=== PATIENT | male | born 1950 | race African-American/Black ===

== ENCOUNTER 2022-06-11 12:09 | Emergency (ER) | payer OTHER ==
[2022-06-11 15:04] LABS: Absolute Lymphocytes (CBC) 0.9 K/uL (0.7-4.9); Hematocrit 43.9 % (39.6-49.0); Lymphocytes % 31.6 % (15.3-44.8); MCV 92.7 fL (80-100); MPV 9.5 fL (7.6-11.3); RBC Red Blood Cell Count 4.74 M/uL (4.33-5.43)
[2022-06-11 15:13] LABS: Potassium 4.8 mmol/L (3.5-5.1)
--- NOTE | 2022-06-11 16:12 | RAD REPORT ---
EXAM DESCRIPTION: CT - Soft Tissue Neck W/Contr CLINICAL HISTORY: right sided neck swelling COMPARISON: No comparisons TECHNIQUE All CT scans are performed using dose optimization technique as appropriate and may includ e automated exposure control or mA/KV adjustment according to patient size. FINDINGS: There is a large mass appearing to emanate from the right lobe of the thyroid measuring 5. 7 x 4.9 cm. There is internal necrosis 10 dystrophic calcifications. The mass results in right to lef t midline shift of the trachea. Left lobe of the thyroid is normal. A few mildly prominent lymph nodes are seen along both jugular ch ains. Moderate midcervical degenerative spondylosis. 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 Moderate right to left midline shift of the trachea.
--- NOTE | 2022-06-11 17:02 | ER ---
Nurse's Notes [facility] Name: Chu Soria Jr Age: 71 yrs Sex: Male : 1950 Arrival Date: 06/11/2022 Time: 12:12 Bed DIS1 Private MD: Diagnosis: Thyroid Mass Presentation: 06/11 12:48 Chief complaint: Patient states: knot right front neck x1 week; denies pain, swallow 5 okay, "I dont think it's getting any bigger but im not sure". Coronavirus screen: Vaccine status: Patient reports receiving the 2nd dose of the covid vaccine. Client denies travel out of the [place] in the last 14 days. Ebola Screen: Patient negative for fever greater than or equal to 101.5 degrees Fahrenheit, and additional compatible Ebola Virus Disease symptoms Patient denies exposure to infectious person. Patient denies travel to an Ebola-affected area in the 21 days before illness onset. Initial Sepsis Screen: Does the patient meet any 2 criteria? No. Patient's initial sepsis screen is negative. Does the patient have a suspected source of infection? No. Patient's initial sepsis screen is negative. Risk Assessment: Do you want to hurt yourself or someone else? Patient reports no desire to harm self or others. 12:48 Method Of Arrival: Ambulatory [facility] 12:48 Acuity: [place] 3 5 Triage Assessment: 12:52 General: Appears comfortable, slender, well groomed, well developed, well nourished, [facility] Behavior is calm, cooperative, appropriate for age. Pain: Denies pain. Historical: - Allergies: 12:52 No Known Allergies; 5 - PMHx: 12:52 None; [facility] - Immunization history:: Adult Immunizations up to date. - Social history:: Smoking status: Patient denies any tobacco usage or history of. Vital Signs: 12:48 BP 156 / 93; Pulse 71; Resp 16; Temp 98.8; Pulse Ox 97% ; Weight 77.56 kg; Height 5 ft. jh5 7 in. (170.18 cm); Pain 0/10; 12:48 Body Mass Index 26.78 (77.56 kg, 170.18 cm) [facility] ED Course: 12:12 Patient arrived in ED. 4 12:52 Triage completed. jh5 12:52 Arm band placed on right wrist. [facility] 13:06 Familia Sen PA is PHCP. [facility] 13:06 Ulisses Donnelly MD is Attending Physician. [facility] 14:23 Mary Miles, RN is Primary Nurse. iw 14:46 Inserted saline lock: 22 gauge in left antecubital area, using aseptic technique. Blood iw collected. 16:00 Soft Tissue Neck W/Contr In Process Unspecified. EDMS 17:01 Nicolasa Love MD is Referral Physician. [facility] Administered Medications: No medications were administered Outcome: 17:01 Discharge ordered by . [facility] 17:12 Patient left the ED. iw Signatures: Dispatcher [employer] EDPA Familia Sen PA PA Mary Dumont, RN RN Libby Corona rg4 Wanda Aleln RN RN 5
--- NOTE | 2022-06-11 17:02 | EDPHYS ---
Physician Documentation [facility] Name: Chu Soria Jr Age: 71 yrs Sex: Male : 1950 Arrival Date: 06/11/2022 Time: 12:12 Bed DIS1 Private MD: ED Physician Ulisses Donnelly HPI: 06/11 16:43 This 71 yrs old Black Male presents to ER via Ambulatory with complaints of Neck Pain, jmm <24hrs Old. 16:43 The patient or guardian complains of pain. Onset: The symptoms/episode began/occurred jmm gradually, 1 week(s) ago. This is a 71 year old male with complaints neck swelling beginning approx a week ago. Denies sob, difficulty swallowing. [facility] Denies fever. Historical: - Allergies: 12:52 No Known Allergies; jh5 - PMHx: 12:52 None; [facility] - Immunization history:: Adult Immunizations up to date. - Social history:: Smoking status: Patient denies any tobacco usage or history of. ROS: 16:43 Constitutional: Negative for fever, chills, and weight loss, Cardiovascular: Negative jmm for chest pain, palpitations, and edema, Respiratory: Negative for shortness of breath, cough, wheezing, and pleuritic chest pain. 16:43 Abdomen/GI: Negative for abdominal pain, nausea, vomiting, diarrhea, and constipation, Back: Negative for injury and pain, MS/Extremity: Negative for injury and deformity, Skin: Negative for injury, rash, and discoloration, Neuro: Negative for headache, weakness, numbness, tingling, and seizure, Psych: Negative for depression, anxiety, suicide ideation, homicidal ideation, and hallucinations. 16:43 ENT: Positive for neck swelling. 16:43 All other systems are negative. Exam: 16:43 Constitutional: This is a well developed, well nourished patient who is awake, alert, jmm and in no acute distress. Head/Face: atraumatic. Eyes: EOMI, no conjunctival erythema appreciated ENT: Moist Mucus Membranes 16:43 Chest/axilla: Normal chest wall appearance and motion. Cardiovascular: Regular rate and rhythm. No edema appreciated Respiratory: Normal respirations, no respiratory distress appreciated Abdomen/GI: Non distended Back: Normal ROM Skin: General appearance color normal 16:43 Neck: right sided anterior neck swelling appreciated, non tender to palpation. 16:43 Musculoskeletal/extremity: ROM: intact in all extremities. 16:43 Skin: Appearance: Color: normal in color. 16:43 Neuro: Motor: is normal. 16:43 Psych: Behavior/mood is pleasant, cooperative. Vital Signs: 12:48 BP 156 / 93; Pulse 71; Resp 16; Temp 98.8; Pulse Ox 97% ; Weight 77.56 kg; Height 5 ft. jh5 7 in. (170.18 cm); Pain 0/10; 12:48 Body Mass Index 26.78 (77.56 kg, 170.18 cm) jh5 MDM: 13:[address] [facility] 16:36 ED course: call subhash. [facility] 16:59 Data reviewed: vital signs, nurses notes. Counseling: I had a detailed discussion with mehnaz the patient and/or guardian regarding: the historical points, exam findings, and any diagnostic results supporting the discharge/admit diagnosis, the need for outpatient follow up, to return to the emergency department if symptoms worsen or persist or if there are any questions or concerns that arise at home. ED course: I discussed the patient with Dr. Love whom will follow up with the patient. patient is otherwise given strict return precautions. patient understood and agrees with plan of care. . 06/11 13:02 Order name: BMP; Complete Time: 15:16 [facility] 06/11 13:03 Order name: CBC with Diff; Complete Time: 15:21 [facility] 06/11 13:02 Order name: Soft Tissue Neck W/Contr CT [facility] 06/11 13:02 Order name: Saline Lock; Complete Time: 14:46 [facility] 06/11 13:06 Order name: Soft Tissue Neck W/Contr; Complete Time: 16:28 EDMS Administered Medications: No medications were administered Disposition: 16:44 Co-signature as Attending Physician, Ulisses Donnelly MD I agree with the assessment and rt plan of care. Disposition Summary: 06/11/22 17:01 Discharge Ordered Location: Home [facility] Condition: Stable [facility] Diagnosis - Thyroid Mass [facility] Followup: [facility] - With: Nicolasa Love MD - When: 1 - 2 days - Reason: Recheck today's complaints, Continuance of care, Re-evaluation by your physician Discharge Instructions: - Discharge Summary Sheet [facility] - Thyroid Needle Biopsy [facility] Forms: - Medication Reconciliation Form jmm - Thank You Letter jmm - Antibiotic Education jmm - Prescription Opioid Use mehnaz Signatures: Dispatcher [employer] Familia Baum PA PA jmm Rees, Jessica, RN RN jh5 Ulisses Donnelly MD MD rt
[2022-06-11 17:16] VITALS: BP 156/93; TEMP 98.8; O2SAT 97
== END 2022-06-11 17:12 | disposition home or self-care (01) ==
LOC: ER 12:09
DX: E07.9 Disorder of thyroid, unspecified (principal)
CPT/HCPCS: 85025; 80048; 36415; 70491; 99283; Q9967

== ENCOUNTER 2023-12-22 16:42 | Inpatient (IN) | payer OTHER ==
--- OUTSIDE RECORDS SUMMARY | 2023-12-22 16:46 | XMS REPORT | Clinical Summary ---
Author Name Unknown Organization [facility] Address [address] [place] [address] Care Team Providers Care Thread Reeler Name Role Phone Yasmani Martínez MD Unavailable + [phone] Ana Love DO Unavailable Rafa Britton MD Primary Care Provider [phone] Gerald Guzman MD Unavailable Delicia Almonte MD Unavailable [phone] Jana Handley MD Unavailable [phone] Shell Yuan MD Unavailable Allergies No known active allergies Medications Medication Sig Dispensed Refills Start Date End Date Status metFORMIN (GLUCOPHAGE) 850 mg tablet Take 1 tablet (850 mg) by mouth 2 (two) times a day with meals. Active spironolactone (ALDACTONE) 25 mg tablet Take 1 tablet (25 mg) by mouth daily. Active atorvastatin (LIPITOR) 80 mg tablet Take 1 tablet (80 mg) by mouth. Active sacubitriL-valsart an (ENTRESTO) 97 mg-103 mg tab per tablet Take 1 tablet by mouth twice daily. Active carvedilol (COREG) 12.5 mg tablet Take 1 tablet (12.5 mg) by mouth twice daily. Active aspirin 81 mg EC tablet Take 1 tablet (81 mg) by mouth. Active levothyroxine (Synthroid) 137 mcg tabletIndications: Postoperative hypothyroidism Take 1 tablet (137 mcg) by mouth daily. 30 tablet 11 4 Active levoFLOXacin (LEVAQUIN) 500 mg tabletIndications: Elevated prostate specific antigen (PSA) Take 1 tablet (500 mg) by mouth daily for 3 days. Start medication on 01/19/24, the day before your biopsy. 3 tablet 4 024 Active docusate sodium (COLACE) 100 mg capsuleIndications :Follicular lesion of thyroid Take 1 capsule (100 mg) by mouth 2 (two) times a day as needed for constipation. 30 capsule 3 024 Discontinued levothyroxine (SYNTHROID, LEVOTHROID) 75 mcg tabletIndications: Follicular thyroid carcinoma,Postoper ative hypothyroidism,Mak g-term drug therapy Take 1 tablet (75 mcg) by mouth daily. 30 tablet 13 3 023 Discontinued(Re order) levothyroxine (SYNTHROID, LEVOTHROID) 112 mcg tabletIndications: Follicular thyroid carcinoma,Postoper ative hypothyroidism,Mak g-term drug therapy Take 1 tablet (112 mcg) by mouth daily. 30 tablet 13 3 023 Discontinued(Re order) levothyroxine (SYNTHROID, LEVOTHROID) 112 mcg tabletIndications: Follicular thyroid carcinoma,Postoper ative hypothyroidism,Mak g-term drug therapy Take 1 tablet (112 mcg) by mouth daily. 30 tablet 13 3 024 Discontinued(Do se adjustment) multivitamin tab tablet Take by mouth. 024 Discontinued levothyroxine (SYNTHROID, LEVOTHROID) 125 mcg tabletIndications: Follicular thyroid carcinoma,Postoper ative hypothyroidism,Mak g-term drug therapy Take 1 tablet (125 mcg) by mouth daily. 90 tablet 2 4 024 Discontinued(Re order) levothyroxine (SYNTHROID, LEVOTHROID) 125 mcg tabletIndications: Follicular thyroid carcinoma,Postoper ative hypothyroidism,Mak g-term drug therapy Take 1 tablet (125 mcg) Saturday through Saturday and 1/2 tablet on Saturday (total 6-1/2 tablet/week). 90 tablet 1 4 024 Discontinued(Do se adjustment) LORazepam (Ativan) 1 mg tabletIndications: Elevated prostate specific antigen (PSA) Take 1 tablet (1 mg) by mouth once for 1 dose. Bring medication with you to your procedure appointment and do not take until instructed by staff 1 tablet 024 Active Problems Problem Noted Date Diagnosed Date Follicular thyroid carcinoma 09/25/2022 Cancer Staging:Pathologic stage from 09/03/2022:Stage II(pT3a, pNX, cM0, Age at diagnosis: >= 55 years) - Signed by Lilia Razo PA on 09/25/2022 Follicular lesion of thyroid 06/21/2022 Acute pulmonary insufficiency following thoracic surgery 10/30/2016 Dysfunction of right cardiac ventricle 7 Hyperglycemia 10/30/2016 Thrombocytopenia 10/30/2016 Coronary arteriosclerosis 10/28/2016 Encounters Date Type Department Care Team Description 12/20/2023 Orders Only [facility] [place] - [facility]rology [address] [place] [address] Manuel Hardy PA Elevated prostate specific antigen (PSA) (Primary Dx) 12/19/2023 3:00 PM CDT Telemedicine [facility] - Urology [address] [place] [phone] Shell Yuan MD Elevated prostate specific antigen (PSA) (Primary Dx) 12/17/2023 Orders Only MD [facility] [place] - Urology [address] [place] [address] Dia Holm PA Elevated prostate specific antigen (PSA) (Primary Dx) 12/05/2023 2:30 PM CDT Ancillary Procedure PET Imaging [address] [facility], 6th [place] [address] Parul Rader MD Elevated prostate specific antigen (PSA); Other nonspecific abnormal finding of lung field 12/03/2023 11:00 AM CDT Follow-Up Endocrine Center [address] [facility], 6th [place] [address] Esha Lagunas MD Follicular thyroid carcinoma (Primary Dx); Other abnormal tumor marker; Postoperative hypothyroidism; Long-term drug therapy; Other specified hypothyroidism; Multiple nodules of lung 12/03/2023 Travel 11/29/2023 8:30 AM CDT Consult [facility] [address] [place], [place] [address] [address] Shell Yuan MD Elevated prostate specific antigen (PSA) (Primary Dx); Other nonspecific abnormal finding of lung field 11/29/2023 6:20 AM CDT Ancillary Procedure CT Imaging [address] [place] [address] Esha Lagunas MD Follicular thyroid carcinoma; Other abnormal tumor marker; Postoperative hypothyroidism; Long-term drug therapy; Other specified hypothyroidism 11/29/2023 6:00 AM CDT - 11/29/2023 11:59 PM CDT Hospital Encounter [facility] [address] [place] [address] Esha Lagunas MD Follicular thyroid carcinoma; Other abnormal tumor marker; Postoperative hypothyroidism; Long-term drug therapy; Other specified hypothyroidism Discharge Disposition: Home 11/29/2023 Travel 11/05/2023 2:30 PM CDT Telemedicine [facility] [address] [place] [address] Jana Handley MD Elevated prostate specific antigen (PSA) (Primary Dx) 11/05/2023 Orders Only [facility] [address] [place] [address] Abner Ramsey APRN Elevated prostate specific antigen (PSA) (Primary Dx) 10/30/2023 10:30 AM CDT Clinical Support Cardiop[facility] Center [address] [place] [address], [address] [place] [address] Benjamin Gant MD Automatic implantable cardiac defibrillator in situ 10/30/2023 8:10 AM CDT - 10/30/2023 11:59 PM CDT Hospital Encounter [facility] [address] [place], [place] [address], 3rd [place] [address] Calli Lau PA-C Elevated prostate specific antigen (PSA) Discharge Disposition: Home 10/30/2023 Travel 10/24/2023 Orders Only Cardiopulmonary Center [facility], 6th [place] [address] Janine Herron Jr., CVT Automatic implantable cardiac defibrillator in situ (Primary Dx) 10/18/2023 Telephone Endocrine Center [address] [place] [address], 6th [place] [address] Jagdeep Kim APRN 10/17/2023 Telephone Endocrine Center [address] [place] [address], [facility] [place] [address] Alfredo Mallory RN 09/24/2023 Orders Only [facility] [address] [place] [address], 7th [place] [address] Abner Ramsey APRN Elevated prostate specific antigen (PSA) (Primary Dx) 08/23/2023 Orders Only Endocrine Center [address] [place] [address], [facility] [place] [address] Jagdeep Kim APRN Follicular thyroid carcinoma (Primary Dx); Postoperative hypothyroidism; Long-term drug therapy 08/20/2023 10:00 AM GEOSCIENCE LABORATORY TECHNICIAN Office Visit [facility] [address] [place] [address], [facility] [place] [address] Jana Handley MD Elevated prostate specific antigen (PSA) (Primary Dx); Follicular thyroid carcinoma 08/20/2023 8:30 AM GEOSCIENCE LABORATORY TECHNICIAN - 08/20/2023 11:59 PM GEOSCIENCE LABORATORY TECHNICIAN Hospital Encounter [facility] [address] [place] [address] Esha Lagunas MD Follicular thyroid carcinoma; Other abnormal tumor marker; Postoperative hypothyroidism; Long-term drug therapy; Elevated prostate specific antigen (PSA) Discharge Disposition: Home 08/20/2023 Travel 08/16/2023 Orders Only Gen[facility]ourinary Cancer Center [facility], 7th [place] [address] Otis León RN Elevated prostate specific antigen (PSA) (Primary Dx) 07/08/2023 3:00 PM GEOSCIENCE LABORATORY TECHNICIAN Follow-Up Endocrine Center [address] [place] [address], 6th [place] [address] Esha Lagunas MD Follicular thyroid carcinoma (Primary Dx); Other abnormal tumor marker; Postoperative hypothyroidism; Long-term drug therapy; Other specified hypothyroidism 07/08/2023 1:45 PM GEOSCIENCE LABORATORY TECHNICIAN Ancillary Procedure Diagnostic Center [address] [place] [address], 2nd [place] [address] Esha Lagunas MD Follicular thyroid carcinoma; Other abnormal tumor marker; Postoperative hypothyroidism; Long-term drug therapy 07/08/2023 11:43 AM GEOSCIENCE LABORATORY TECHNICIAN - 07/08/2023 11:59 PM GEOSCIENCE LABORATORY TECHNICIAN Hospital Encounter [facility] [address] [place] [address] Esha Lagunas MD Follicular thyroid carcinoma; Other abnormal tumor marker; Postoperative hypothyroidism; Long-term drug therapy Discharge Disposition: Home 07/08/2023 10:15 AM GEOSCIENCE LABORATORY TECHNICIAN Ancillary Procedure Neuro-Interventio nal Ultrasound [address] [place] [address], 6th [place] [address] Esha Lagunas MD Follicular thyroid carcinoma; Other abnormal tumor marker; Postoperative hypothyroidism; Long-term drug therapy 07/08/2023 Travel 05/29/2023 Orders Only [facility] - Surgical Oncology [address] [place] [address], 10th Floor, [place] [address] Johnathan Ardon PA Follicular thyroid carcinoma (Primary Dx) 05/29/2023 Telephone [facility] - Surgical Oncology [address] [place] [address], 10th Floor, [place] [address] Sofia Schmidt RN 03/01/2023 8:00 AM CDT - 03/01/2023 11:59 PM CDT Hospital Encounter [facility] [address] [place] [address], [place] [address] Esha Lagunas MD Follicular thyroid carcinoma; Postoperative hypothyroidism Discharge Disposition: Home 12/25/2022 11:45 AM CDT Follow-Up Endocrine Center [address] [place] [address], 6th [place] [address] Esha Lagunas MD Follicular thyroid carcinoma; Other abnormal tumor marker; Postoperative hypothyroidism; Long-term drug therapy 12/25/2022 10:15 AM CDT Ancillary Procedure Neuro-Interventio nal Ultrasound [address] [facility], 6th [place] [address] Jagdeep Kim APRN Follicular thyroid carcinoma; Other abnormal tumor marker 12/25/2022 9:17 AM CDT - 12/25/2022 11:59 PM CDT Hospital Encounter [facility] [address] [place] [address], [facility] [place] [address] Jagdeep Kim APRN Follicular thyroid carcinoma; Other abnormal tumor marker Discharge Disposition: Home 12/25/2022 Travel after 12/22/2022 Immunizations Name Administration Dates Next Due Moderna SARS-CoV-2 Vaccination 05/02/2022,2020,08/07/2020 Surgical History Surgery Date Site/Laterality Comments COLONOSCOPY 2018 CARDIAC PACEMAKER PLACEMENT 04/2016 CORONARY ARTERY BYPASS GRAFT MI TOTAL THYROID LOBECTOMY U NI W/WO ISTHMUSECTOMY 09/03/2022 Neck/Right Procedure: UNILATERAL COMPLETE THYROID LOBECTOMY; Surgeon: Rafa Britton MD; Location: MAIN OR; Service: [facility] - HEAD & NECK SURGERY Medical History Medical History Date Comments Heart failure 2017 Triple Bypass Hypertension 1982 Heart inflammati on Myocardial infarction 1982 Hyperlipidemia 10/2015 Irregular heart beat 04/2016 Pacemaker Hearing loss 2018 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 Pancreatitis 2018 Neuroendocrine T umor Osteoporosis 11/2017 Paget Disease le ft iliac bone Gout 2018 Non current Disorder of thyroid gland 09/2017 Benign Goiter w/cystic nodule Type 2 diabetes mellitus 2010 Non ins ulin dependent Coronary artery disease due to calcified coronary lesion Family History Medical History Relation Name Comments -Other cancer Brother throat cancer Breast cancer Sister Sofia Relation Name Status Comments Brother throat cancer Sister Sofia Social History Tobacco Use Types Packs/Day Years Used Date Smoking Tobacco: Former Cigarettes 1 15 Smokeless Tobacco: Never Tobacco Cessation:Counseling Given: Not Answered Alcohol Use Standard Drinks/Week Comments Never 0 (1 standard drink = 0.6 oz pur e alcohol) Sex and Gender Information Value Date Recorded Sex Assigned at Male 06/20/2022 10:20 AM GEOSCIENCE LABORATORY TECHNICIAN Gender Identity Male 06/20/2022 10:20 AM GEOSCIENCE LABORATORY TECHNICIAN Sexual Orientation Straight 06/20/2022 10 :20 AM GEOSCIENCE LABORATORY TECHNICIAN Job Start Date Occupation Industry Not on file Not on file Not on file Obstetrics History Last Filed Vital Signs Vital Sign Reading Time Taken Comments Blood Pressure 126/82 12/03/2023 10:59 AM CDT Pulse 74 12/03/2023 10:59 AM CDT Temperature 36.8 C (98.2 F) 12/03/2023 10:59 AM C DT Respiratory Rate 17 12/03/2023 10:59 AM CDT Oxygen Saturation 99% 12/03/2023 10:59 AM CDT Inhaled Oxygen Concentration - - Weight 73.2 kg (161 lb 6 oz) 12/05/2023 2:11 PM CDT Height 166 cm (5' 5.35") 12/05/2023 2:11 PM CDT Body Mass Index 26.56 12/05/2023 2:11 PM CDT Plan of Treatment Upcoming Encounters Date Type Department Care Team (Late st Contact Info) Description 01/20/2024 1:00 PM CDT Procedure visit MD [facility] [place] - Urology [address] [place] [address] Shell Yuan MD [facility] [place] [address] 04/27/2024 10:00 AM CDT Appointment [facility] [address] [place] [address] Lilia Shannon APRN [address] [place] [address] 04/27/2024 10:15 AM CDT Ancillary Procedure Neuro-Interventional Ultrasound [address] [facility], 6th [place] [address] Lilia Shannon, VEGETABLE WASHING MACHINE OPERATOR [address] [place] [address] 04/27/2024 12:40 PM CDT Ancillary Procedure CT Imaging [address] [facility], 7th Floor [facility] [place] [address] Lilia Shannon, VEGETABLE WASHING MACHINE OPERATOR [address] [place] [address] 04/27/2024 2:30 PM CDT Follow-Up Endocrine Center [address] [facility], 6th [facility] [place] [place] [address] Esha Lagunas MD [address] [place] [address] Health Maintenance Due Date Last Done Comments COVID-19 Vaccine (2022-08 4 season) 2023 06/01/2023, 05/02/2022, 05/02/2021, Additional history exists Influenza Vaccine 03/22/2024 06/01/2023, , 05/22/2020, Additional history exists Medical Devices Implanted Type Area Factorer Device Identifier Shelf Expiration Date Model / Serial / Lot Lopez- [id number] Implanted:04/23 by Maria C Weller MD (Quantity not on file) ICD [employer] 1357-40Q / [id number] / Description:MRI non-conditio nal. Not dependent Wires Midline: Sternum Lenses Eye Description:Cataract surgery Procedures Procedure Name Priority Date/Time Associated Diagnosis Comments PETCT F18 PSMA PYL (PIFLUFOLASTAT) WITH CONTRAST Routine 12/05/2023 4:01 PM CDT Elevated prostate specific antigen (PSA) Other nonspecific abnormal finding of lung field POC CREATININE Routine 12/05/2023 2:[address] CHEST WO CONTRAST Routine 11/29/2023 7:02 AM CDT Follicular thyroid carcinoma Other abnormal tumor marker Postoperative hypothyroidism Long-term drug therapy Other specified hypothyroidism THYROID STIMULATING HORMONE Add-On 11/29/2023 6:44 AM CDT Postoperative hypothyroidism THYROGLOBULIN Routine 11/29/2023 6:44 AM CDT Follicular thyroid carcinoma Other abnormal tumor marker Postoperative hypothyroidism Long-term drug therapy Other specified hypothyroidism FREE THYROXINE Routine 11/29/2023 6:44 AM CDT Follicular thyroid carcinoma Other abnormal tumor marker Postoperative hypothyroidism Long-term drug therapy Other specified hypothyroidism MRI PELVIS W WO CONTRAST PROSTATE Routine 10/30/2023 9:58 AM CDT Elevated prostate specific antigen (PSA) PSA FREE/TOTAL RATIO Routine 08/20/2023 8:55 AM GEOSCIENCE LABORATORY TECHNICIAN Elevated prostate specific antigen (PSA) FREE THYROXINE Routine 08/20/2023 8:55 AM GEOSCIENCE LABORATORY TECHNICIAN Follicular thyroid carcinoma Other abnormal tumor marker Postoperative hypothyroidism Long-term drug therapy THYROID STIMULATING HORMONE Routine 08/20/2023 8:55 AM GEOSCIENCE LABORATORY TECHNICIAN Follicular thyroid carcinoma Other abnormal tumor marker Postoperative hypothyroidism Long-term drug therapy THYROID STIMULATING HORMONE Routine 07/08/2023 12:23 PM GEOSCIENCE LABORATORY TECHNICIAN Follicular thyroid carcinoma Other abnormal tumor marker Postoperative hypothyroidism Long-term drug therapy THYROGLOBULIN Routine 07/08/2023 12:23 PM GEOSCIENCE LABORATORY TECHNICIAN Follicular thyroid carcinoma Other abnormal tumor marker Postoperative hypothyroidism Long-term drug therapy FREE THYROXINE Routine 07/08/2023 12:23 PM GEOSCIENCE LABORATORY TECHNICIAN Follicular thyroid carcinoma Other abnormal tumor marker Postoperative hypothyroidism Long-term drug therapy XR CHEST 2 VW Routine 07/08/2023 12:09 PM GEOSCIENCE LABORATORY TECHNICIAN Follicular thyroid carcinoma Other abnormal tumor marker Postoperative hypothyroidism Long-term drug therapy US HEAD NECK SOFT TISSUE Routine 07/08/2023 11:34 AM GEOSCIENCE LABORATORY TECHNICIAN Follicular thyroid carcinoma Other abnormal tumor marker Postoperative hypothyroidism Long-term drug therapy THYROID STIMULATING HORMONE Routine 03/01/2023 10:58 AM CDT Follicular thyroid carcinoma Postoperative hypothyroidism FREE THYROXINE Routine 03/01/2023 10:58 AM CDT Follicular thyroid carcinoma Postoperative hypothyroidism US HEAD NECK SOFT TISSUE Routine 12/25/2022 10:59 AM CDT Follicular thyroid carcinoma Other abnormal tumor marker THYROID STIMULATING HORMONE Routine 12/25/2022 9:30 AM CDT Follicular thyroid carcinoma Other abnormal tumor marker THYROGLOBULIN Routine 12/25/2022 9:30 AM CDT Follicular thyroid carcinoma Other abnormal tumor marker FREE THYROXINE Routine 12/25/2022 9:30 AM CDT Follicular thyroid carcinoma Other abnormal tumor marker after 12/22/2022 Results * PETCT F18 PSMA PyL (Piflufolastat) with contrast (12/05/2023 4:01 PM CDT) Anatomical Region Laterality Modality Whole Body Positron Emissio n Tomography (PET) 12/05/2023 4:13 PM CDT Impressions 12/05/2023 4:53 PM CDT 1. Heterogeneous low-grade activity involving the prostate could represent multifocal tumor. However, the relatively low uptake in this region is more suggestive of low-grade tumor. Tissue diagnosis is recommended 2. No focal avid or suspicious abdominal or pelvic nodes to suggest local regional metastases 3. Small bilateral lung nodules with low-grade activity is nonspecific. Although SMA avidity is commonly associated with prostate carcinoma, there is also finding to jovani-vasculature, for example as reported in differentiated thyroid carcinoma. Correlation with radioiodine scan is suggested as this has higher specificity for thyroid carcinoma. 3. Heterogeneous sclerotic change in activity involving left pelvic bones most likely represents unrelated process such as Paget's disease, as reported in literature. 4. There are a few scattered subtle foci within bones. These are nonspecific, and for example low-grade activity associated with ribs may be seen with benign osseous tumor. However there is also subtle focus without discernible anatomic abnormality in cervical spine, which is atypical for benign osseous tumor. Correlation with MRI and/or radioiodine scan is suggested. ACTIONABLE ITEMS/RECOMMENDATIONS*: None. *An Actionable Finding is a finding that may be unrelated to the original reason for imaging but potentially actionable, meaning further investigation may be necessary. The Actionable Findings Vigilance Unit (AFVU) assists medical providers with responding to additional radiologic findings that are unexpected and potentially actionable. Narrative 12/05/2023 4:53 PM CDT FULL RESULT: Examination: F-18 Piflufolastat/PSMA PyL PET/CT with contrast, 12/05/2023 4:01 PM Clinical History: 73-year-old male with suspected prostate carcinoma. Recent imaging reported enlarging lung nodules raising the possibility of metastatic disease. However, he also has thyroid carcinoma with prior surgery and radioiodine therapy in 2022; he has an abnormal thyroglobulin level. PET/CT was requested for further evaluation. Indication: Diagnosis/initial treatment strategy Comparison: No prior prostate directed PET/CT scans are available for comparison at time dictation. Correlation is made with CT scan of the chest from 11/29/2023 Technique: F-18 Piflufolastat/PSMA PyL 9.8 mCi was administered intravenously via the left forearm vein IV. Following approximately 69 minutes delay, PET/CT imaging was performed from proximal thighs to skull vertex in one bed position. CT scanning with intravenous contrast was performed for attenuation correction, image registration, and diagnosis, with scan parameters optimized to minimize radiation exposure to the patient. SUV measurements are reported as maximum SUV based on body weight unless otherwise specified. There are technical differences which may result in increased scan to scan variation of semiquantitative measurements. FINDINGS: Head and Neck: No focal avid or suspicious cervical lymphadenopathy. No focal abnormal activity within the brain which is unremarkable on contrast CT images. Paranasal sinuses are unremarkable. Prior thyroidectomy noted incidentally. No focal suspicious activity in thyroid bed. Likely physiologic activity within lacrimal and salivary glands. Chest: Small to moderate bilateral pleural effusions, slightly larger compared to November 2023 CT. No focal suspicious activity within the stomach suggests malignant pleural deposits. A rounded 0.5 cm nodule in right upper lobe on image 184 has SUV 3.4. A subtle 0.2 cm nodule in region of inferior right upper lobe on image 195 appears to have subtle activity, SUV 1.5. There appears to be a subtle 0.4 cm nodule in the right lower lobe on image 233 with subtle activity, SUV 3.2, better appreciated on recent CT. A rounded 0.5 cm nodule in left lower lobe on image 211 has SUV 3.9. No focal avid or suspicious mediastinal or axillary lymphadenopathy. Prior median sternotomy and coronary artery bypass are noted incidentally. Abdomen and Pelvis: No focal abnormal activity in the liver with diffuse fatty change. Gallbladder is visualized. There is slight fullness in region of left adrenal about 1.5 cm on image 264 but without suspicious activity, most likely unrelated. This appears to been present as far back as June 2022 CT, favored benign. This may be further characterized with dedicated contrast CT as clinically indicated. Right adrenal, kidneys, pancreas, and spleen are unremarkable on contrast CT images and without focal suspicious activity on corresponding PET images. There is subtle heterogeneity of activity within the prostate. For example one more prominent foci is in region of anterior superior left prostate with SUV 4.6 on image 401. In the mid left prostate with SUV 3.7 on image 405. In the mid right prostate with SUV 3.8 on image 404. Slight prominence in region of inferior right prostate with SUV 3.5 on image 413. No focal active or suspicious abdominal or pelvic lymphadenopathy. Musculoskeletal: There is heterogeneous sclerotic change involving left pelvic bones, with heterogeneous activity on corresponding PET images, for example in region of left ischium with SUV 7 on image 422. Tiny nodular activity is seen in region of posterior elements of right C6 without readily discernible anatomic abnormality and SUV 3.4 on image 129. Subtle activity in region of posterior left 3rd rib without discernible anatomic abnormality and SUV 2.8 on image 155. Procedure Note Rudy Pyle MD - 12/05/2023 FULL RESULT: Examination: F-18 Piflufolastat/PSMA PyL PET/CT with contrast, :01 PM Clinical History: 73-year-old male with suspected prostate carcinoma.Recent imaging reported enlarging lung nodules raising the possibility ofmetastatic disease. However, he also has thyroid carcinoma with priorsurgery and radioiodine therapy in 2022; he has an abnormal thyroglobulinlevel. PET/CT was requested for further evaluation. Indication: Diagnosis/initial treatment strategy Comparison: No prior prostate directed PET/CT scans are available forcomparison at time dictation. [facility] Technique: F-18 Piflufolastat/PSMA PyL 9.8 mCi was administeredintravenously via the left forearm vein IV. Following approximately 69minutes delay, PET/CT imaging was performed from proximal thighs to skullvertex in one bed position. CT scanning with intravenous contrast wasperformed for attenuation correction, image registration, and diagnosis,with scan parameters optimized to minimize radiation exposure to thepatient. SUV measurements are reported as maximum SUV based on body weightunless otherwise specified. There are technical differences which mayresult in increased scan to scan variation of semiquantitativemeasurements. FINDINGS: Head and Neck: No focal avid or suspicious cervical lymphadenopathy. Nofocal abnormal activity within the brain which is unremarkable on contrastCT images. Paranasal sinuses are unremarkable. Prior thyroidectomy notedincidentally. No focal suspicious activity in thyroid bed. Likelyphysiologic activity within lacrimal and salivary glands. Chest: Small to moderate bilateral pleural effusions, slightly largercompared to November 2023 CT. No focal suspicious activity within the stomachsuggests malignant pleural deposits. A rounded 0.5 cm nodule in right upper lobe on image 184 has SUV 3.4. Asubtle 0.2 cm nodule in region of inferior right upper lobe on image 195appears to have subtle activity, SUV 1.5. There appears to be a subtle 0.4cm nodule in the right lower lobe on image 233 with subtle activity, SUV3.2, better appreciated on recent CT. A rounded 0.5 cm nodule in leftlower lobe on image 211 has SUV 3.9. No focal avid or suspicious mediastinal or axillary lymphadenopathy. Priormedian sternotomy and coronary artery bypass are noted incidentally. Abdomen and Pelvis: No focal abnormal activity in the liver with diffusefatty change. Gallbladder is visualized. There is slight fullness in region of left adrenal about 1.5 cm on [id number] but without suspicious activity, most likely unrelated. This appearsto been present as far back as June [address]22 CT, favored benign. This maybe further characterized with dedicated contrast CT as clinicallyindicated. Right adrenal, kidneys, pancreas, and spleen are unremarkable on contrastCT images and without focal suspicious activity on corresponding PETimages. There is subtle heterogeneity of activity within the prostate. For exampleone more prominent foci is in region of anterior superior left prostatewith SUV 4.6 on image 401. In the mid left prostate with SUV 3.7 on [id number]. In the mid right prostate with SUV 3.8 on image 404. Slightprominence in region of inferior right prostate with SUV 3.5 on [id number]. No focal active or suspicious abdominal or pelvic lymphadenopathy. Musculoskeletal: There is heterogeneous sclerotic change involving leftpelvic bones, with heterogeneous activity on corresponding PET images, forexample in region of left ischium with SUV 7 on image 422. Tiny nodular activity is seen in region of posterior elements of right [id number] readily discernible anatomic abnormality and SUV 3.4 on image 129.Subtle activity in region of posterior left 3rd rib without discernibleanatomic abnormality and SUV 2.8 on image 155. IMPRESSION: 1. Heterogeneous low-grade activity involving the prostate could representmultifocal tumor. However, the relatively low uptake in this region ismore suggestive of low-grade tumor. Tissue diagnosis is recommended 2. No focal avid or suspicious abdominal or pelvic nodes to suggest localregional metastases 3. Small bilateral lung nodules with low-grade activity is nonspecific.Although SMA avidity is commonly associated with prostate carcinoma, thereis also finding to jovani-vasculature, for example as reported indifferentiated thyroid carcinoma. Correlation with radioiodine scan issuggested as this has higher specificity for thyroid carcinoma. 3. Heterogeneous sclerotic change in activity involving left pelvic bonesmost likely represents unrelated process such as Paget's disease, asreported in literature. 4. There are a few scattered subtle foci within bones. These arenonspecific, and for example low-grade activity associated with ribs maybe seen with benign osseous tumor. However there is also subtle focuswithout discernible anatomic abnormality in cervical spine, which isatypical for benign osseous tumor. Correlation with MRI and/or radioiodinescan is suggested. ACTIONABLE ITEMS/RECOMMENDATIONS*: None. *An Actionable Finding is a finding that may be unrelated to the originalreason for imaging but potentially actionable, meaning furtherinvestigation may be necessary. The Actionable Findings Vigilance Unit(AFVU) assists medical providers with responding to additional radiologicfindings that are unexpected and potentially actionable. Parul Rader MD IMG PETCT ORDERABL ES * POC Creatinine (12/05/2023 2:36 PM CDT) POC Creatinine 1.0 0.6 - 1.3 mg/dL 12/05/2023 2:43 PM CDT [facility] Comment:Medications, especia lly hydroxyurea or supplements, such as ascorbate, can interfere with test results causing a falsely and significantly higher result than expected. If a problem is suspected with a patient's result, a sample should be sent to the laboratory for confirmatory testing. POC eGFR 78 >=60 mL/min/1.7 3 sq. m 12/05/2023 2:43 PM CDT [facility] Comment: The eGFRcr is calculated with the 2020 CKD-EPI creatinine equation using creatinine, patient's age, and sex for adults 18 years of age and older. Other factors, especially muscle mass, may affect accuracy and need to be considered. According to the Kidney Disease: Improving Global Outcomes (KDIGO) CKD Work Group 2012 Clinical Practice Guideline, chronic kidney disease (CKD) is defined as the abnormalities of kidney structure or function, present for more than 3 months, with implications for health. CKD should be classified by cause, GFR category, and albuminuria category. KDIGO guidelines provide the following GFR categories. Stage / Description / GFR mL/min/1.73 m2: G1* / Normal or high / >= 90 G2* / Mildly decreased / 60-89 G3a / Mildly to moderately decreased / 45-59 G3b / Moderately to severely decreased / 30-44 G4 / Severely decreased / 15-29 G5 / Kidney failure / <15 *In the absence of evidence of kidney damage, neither G1 nor G2 fulfill criteria for CKD. Blood 12/05/2023 2:36 PM CDT 12/05/2023 2:43 PM CDT Narrative [facility] - 12/05/2023 2:43 PM CDT Method description: The i-STAT is an analyzer used for in vitro quantification of various analytes in whole blood. The device uses a single disposable cartridge which contains microfabricated sensors, a calibration solution, fluidics system, and a waste chamber. Each test cartridge contains chemically sensitive biosensors on a silicon chip that are configured to perform specific tests. The microfabricated sensors measure analyte concentration by an electrochemical assay. Parul Rader MD POCT ORDERABLES - DEVICE [facility] Unless otherwise noted, all lab tests performed by: Division of Pathology and Laboratory Medicine [address] [place] [address] * CT Chest without Contrast (11/29/2023 7:02 AM CDT) Anatomical Region Laterality Modality Chest Computed Tomogra phy 11/29/2023 8:03 AM CDT Impressions 11/29/2023 8:14 AM CDT 1. Multiple new and enlarging pulmonary nodules are compatible with metastatic disease. 2. There are small bilateral pleural effusions. 3. There is cardiomegaly with pulmonary artery enlargement which raises the possibility of pulmonary hypertension. ACTIONABLE ITEMS/RECOMMENDATIONS*: None. *An Actionable Finding is a finding that may be unrelated to the original reason for imaging but potentially actionable, meaning further investigation may be necessary. The Actionable Findings Vigilance Unit (AFVU) assists medical providers with responding to additional radiologic findings that are unexpected and potentially actionable. Narrative 11/29/2023 8:14 AM CDT FULL RESULT: Examination: CT CHEST WO CONTRAST on 11/29/2023 7:02 AM. Clinical History: Follicular thyroid carcinoma. Other abnormal tumor marker. Postoperative hypothyroidism. Long-term drug therapy. Other specified hypothyroidism Indication: Incidental solitary pulmonary nodule, Not related to lung cancer, cancer screening or incidental pulmonary nodule follow-up Comparison: 07/06/2022 Technique: CT of the chest is performed without intravenous contrast. Findings: Support devices: There is a left upper chest implantable cardiac defibrillator with a single chamber lead terminating in the right ventricle. Lungs/Airways/Pleura: The trachea and central airways are clear. Multiple pulmonary nodules have enlarged. For example, a 7 mm right upper lobe nodule previously measured 4 mm (series 3, image 50). A 7 mm left lower lobe nodule previously measured 3 mm (image 78). There are some new nodules. For example, there is a new 4 mm right upper lobe nodule (image 60). There is a new 6 mm right lower lobe nodule with adjacent groundglass opacity (image 72). There are stable, clustered areas of cystic/reticular fibrosis in the lower lobes. Mild left lower lobe volume loss is present. Small pleural effusions are present. Neck/Mediastinum/Nodes/Heart: There has been a thyroidectomy. Lymph nodes in the mediastinum measure up to 8 mm. The heart is enlarged. There is no pericardial effusion. Calcific coronary atherosclerosis is present. There has been a prior coronary artery bypass graft. The pulmonary artery is dilated measuring 35 mm. Upper abdomen: There is stable, mild left adrenal gland thickening which is likely benign. Bones/Soft Tissues: There are degenerative changes in the spine. There is a healed median sternotomy. Procedure Note Luis Shaffer MD - 11/29/2023 FULL RESULT: Examination: CT CHEST WO CONTRAST on 11/29/2023 7:02 AM. Clinical History: Follicular thyroid carcinoma. Other abnormal tumormarker. Postoperative hypothyroidism. Long-term drug therapy. Otherspecified hypothyroidism Indication: Incidental solitary pulmonary nodule, Not related to lungcancer, cancer screening or incidental pulmonary nodule follow-up Comparison: 07/06/2022 Technique: CT of the chest is performed without intravenous contrast. Findings: Support devices: There is a left upper chest implantable cardiacdefibrillator with a single chamber lead terminating in the rightventricle. Lungs/Airways/Pleura: The trachea and central airways are clear. Multiplepulmonary nodules have enlarged. For example, a 7 mm right upper lobenodule previously measured 4 mm (series 3, image 50). A 7 mm left lowerlobe nodule previously measured 3 mm (image 78). There are some newnodules. For example, there is a new 4 mm right upper lobe nodule (image60). There is a new 6 mm right lower lobe nodule with adjacent groundglassopacity (image 72). There are stable, clustered areas of cystic/reticularfibrosis in the lower lobes. Mild left lower lobe volume loss is present.Small pleural effusions are present. Neck/Mediastinum/Nodes/Heart: There has been a thyroidectomy. Lymph nodesin the mediastinum measure up to 8 mm. The heart is enlarged. There is nopericardial effusion. Calcific coronary atherosclerosis is present. Therehas been a prior coronary artery bypass graft. The pulmonary artery isdilated measuring 35 mm. Upper abdomen: There is stable, mild left adrenal gland thickening whichis likely benign. Bones/Soft Tissues: There are degenerative changes in the spine. There vanesa healed median sternotomy. IMPRESSION: 1. Multiple new and enlarging pulmonary nodules are compatible withmetastatic disease. 2. There are small bilateral pleural effusions. 3. There is cardiomegaly with pulmonary artery enlargement which raisesthe possibility of pulmonary hypertension. ACTIONABLE ITEMS/RECOMMENDATIONS*: None. *An Actionable Finding is a finding that may be unrelated to the originalreason for imaging but potentially actionable, meaning furtherinvestigation may be necessary. The Actionable Findings Vigilance Unit(AFVU) assists medical providers with responding to additional radiologicfindings that are unexpected and potentially actionable. Esha Lagunas MD IMG CT ORDERABLES * Thyroglobulin (11/29/2023 6:44 AM CDT) Only the most recent of3 resultswithin the time period is included. Thyroglobulin 43.75 1.59 - 50.03 ng/mL 11/29/2023 10:10 AM CDT [facility] Comment: Caution is required for result interpretation in the following conditions: For athyreotic patients, please note that the reference range is <0.1 ng/mL. When thyroglobulin results exceed 4500.00 ng/mL, some thyroglobulin samples may not dilute linearly due to varying antigen specificity, affinity, and avidity of capture and conjugate antibodies in their epitope reactions. If Thyroglobulin Antibody >4 IU/mL on Akua Strandquist, thyroglobulin results can be falsely low due to the presence of thyroglobulin antibodies. Testing on an alternative platform is available. Please contact pathologists or the core lab at [phone] for assistance. Thyroglobulin Antibody <0.9 <=3.9 IU/ml 11/29/2023 10:10 AM CDT [facility] Comment:Due to varying antig en specificity, affinity and avidity of capture and conjugate antibodies in their epitope reactions, some thyroglobulin antibody samples may not dilute linearly when results exceed 1650 IU/mL. Blood Peripheral blood specimen / Unknown Venipuncture / Unknown 11/29/2023 6:44 AM CDT 11/29/2023 6:45 AM CDT Esha Lagunas MD LAB BLOOD ORDERABLE S [facility] Unless otherwise noted, all lab tests performed by: Division of Pathology and Laboratory Medicine [address] [place] [id number] * (ABNORMAL) TSH (11/29/2023 6:44 AM CDT) Only the most recent of5 resultswithin the time period is included. Thyroid Stimulating Hormone 8.68(H) 0.27 - 4.20 mcunit/mL 12/03/2023 12:52 PM CDT [facility] Blood Peripheral blood specimen / Unknown Venipuncture / Unknown 11/29/2023 6:44 AM CDT 11/29/2023 6:45 AM CDT Lilia Shannon APRN LAB BLOOD ORDERABLES Performing Organization Address City/[facility] Co de Phone Number [facility] [address] [place] [address]. [address] [place] [address] * Free T4 (11/29/2023 6:44 AM CDT) Only the most recent of5 resultswithin the time period is included. T4 (Thyroxine) Free 1.19 0.93 - 1.70 ng/dL 11/29/2023 8:02 AM CDT [facility] Blood Peripheral blood specimen / Unknown Venipuncture / Unknown 11/29/2023 6:44 AM CDT 11/29/2023 6:45 AM CDT Esha Lagunas MD LAB BLOOD ORDERABLE S [facility] [address] [place] [address]. [address] [place] [address] * MRI Pelvis with and without Contrast - Prostate (10/30/2023 9:58 AM CDT) Anatomical Region Laterality Modality Pelvis Magnetic Resonan ce 10/30/2023 10:2 6 AM CDT Addenda Addendum by Margaret Mathur MD on 12/05/2023 5:08 PM CDT There is heterogeneous signal intensity in the left iliac bone and left acetabulum. This may represent Paget's disease. Please see follow-up PET/CT examination of 12/05/2023. Impressions 10/30/2023 10:46 AM CDT 1.3 cm lesion in the right peripheral zone without extraprostatic extension. 1.2 cm lesion in the left central gland. Estimated prostate volume of 29 with estimated PSA density of 0.57ng/mL/cc. OVERALL PI-RADS category: 4. ACTIONABLE ITEMS/RECOMMENDATIONS*: None. *An Actionable Finding is a finding that may be unrelated to the original reason for imaging but potentially actionable, meaning further investigation may be necessary. The Actionable Findings Vigilance Unit (AFVU) assists medical providers with responding to additional radiologic findings that are unexpected and potentially actionable. Narrative 10/30/2023 10:46 AM CDT Full Result: Examination: MRI PELVIS W WO CONTRAST PROSTATE on 10/30/2023 9:58 AM Clinical History: Elevated prostate specific antigen (PSA). PSA: 16.4 ng/mL. Indication: elevated PSA [place] score: NA. Comparison: None. Prior therapy: none Technique: Prostate MRI acquired at 1.5 T with an endorectal coil. Three-plane localizer, axial T1W and axial DWI with ADC reconstruction of the pelvis were performed. Three plane T2W, axial T1W, and axial DWI with ADC reconstruction of the prostate were performed. Axial dynamic contrast-enhanced images were acquired of the prostate. Image Quality: Acceptable Findings: Prostate measurement (3-plane): 4.7 x 2.7 x 4.3 cm (transverse by AP by craniocaudal); estimated prostate volume of 29 cc. Hemorrhage: None Benign prostatic hypertrophy: Moderate Lesion # 1 measures 1.3 cm and is located in the right peripheral zone at the level of the near apex on: Image # 18, series 600. Location: 7-8 o'clock Extra-prostatic disease or neurovascular bundle invasion: not found Lesion overall PI-RADS Category: 4. Lesion # 2 measures 1.2 cm and is located in the left central gland at the level of the base on: Image # 10, series 600. Location: 12-1o'clock Extra-prostatic disease or neurovascular bundle invasion: not found Lesion overall PI-RADS Category: 4. Lymphadenopathy: not found No clear involvement of the bladder neck, distal sphincter, or rectum. Bones: No suspicious bone lesion Other: unremarkable. Procedure Note Margaret Mathur MD - 10/30/2023 Full Result: Examination: MRI PELVIS W WO CONTRAST PROSTATE on 10/30/2023 9:58 AM Clinical History: Elevated prostate specific antigen (PSA). PSA: 16.4ng/mL. Indication: elevated PSA [place] score: NA. Comparison: None. Prior therapy: none Technique: Prostate MRI acquired at 1.5 T with an endorectal coil.Three-plane localizer, axial T1W and axial DWI with ADC reconstruction ofthe pelvis were performed. Three plane T2W, axial T1W, and axial DWI withADC reconstruction of the prostate were performed. Axial dynamiccontrast-enhanced images were acquired of the prostate. Image Quality: Acceptable Findings: Prostate measurement (3-plane): 4.7 x 2.7 x 4.3 cm (transverse by AP bycraniocaudal); estimated prostate volume of 29 cc. Hemorrhage: None Benign prostatic hypertrophy: Moderate Lesion # 1 measures 1.3 cm and is located in the right peripheral zone atthe level of the near apex on: Image # 18, series 600. Location: 7-8 o'clock Extra-prostatic disease or neurovascular bundle invasion: notfound Lesion overall PI-RADS Category: 4. Lesion # 2 measures 1.2 cm and is located in the left central gland atthe level of the base on: Image # 10, series 600. Location: 12-1o'clock Extra-prostatic disease or neurovascular bundle invasion: notfound Lesion overall PI-RADS Category: 4. Lymphadenopathy: not found No clear involvement of the bladder neck, distal sphincter, or rectum. Bones: No suspicious bone lesion Other: unremarkable. IMPRESSION: 1.3 cm lesion in the right peripheral zone without extraprostaticextension. 1.2 cm lesion in the left central gland. Estimated prostate volume of 29 with estimated PSA density of0.57ng/mL/cc. OVERALL PI-RADS category: 4. ACTIONABLE ITEMS/RECOMMENDATIONS*: None. *An Actionable Finding is a finding that may be unrelated to the originalreason for imaging but potentially actionable, meaning furtherinvestigation may be necessary. The Actionable Findings Vigilance Unit(AFVU) assists medical providers with responding to additional radiologicfindings that are unexpected and potentially actionable. Calli Lau PA-C IMG MRI ORDERABLES * (ABNORMAL) PSA Free/total Ratio (08/20/2023 8:55 AM [facility]) Free Prostate Specific Antigen 1.15 ng/mL 08/20/2023 10:34 AM [facility] Comment:This test is measure d by electrochemiluminescence immunoassay on Marino Agustin immunoassay analyzers. Results obtained in different methods are not interchangeable. TPSA SC 16.4(H) 0.0 - 4.0 ng/mL 08/20/2023 10:34 AM [facility] Comment: Reference range established based on adult male population. Results greater than 4519 ng/mL may not be reliable due to matrix effect with extended dilution as it exceeds the stationary engineer refrigeration's recommended limit. Caution should be exercised when interpreting such values and done in conjunction with clinical context. This test is measured by electrochemiluminescence immunoassay on Marino Agustin immunoassay analyzers. Results obtained in different methods are not interchangeable. FPSA/TPSA Ratio 7.01 % 10:34 AM [facility] Comment: The Free PSA percentage is used as an aid in distinguishing prostate cancer from benign prostatic conditions in men with a Total PSA value between 4.0-10.0 ng/ml. The table below indicates the percent probability of finding prostate cancer on a needle biopsy by percent of Free PSA. Free:Total PSA Ratio 50-59 yrs < or 10% 49% 11%- 18% 27% 19%-25% 18% >25% 9% 60-69 yrs < or 10% 58% 11%- 18% 34% 19%-25% 24% >25% 12% >or= 70 yrs < or 10% 65% 11%- 18% 41% 19%-25% 30% >25% 16% Measured Free PSA and Total PSA results were obtained by Marino electrochemiluminescent immunoassay. Results obtained with other assay methods can not be used interchangeably. Blood Peripheral blood specimen / Unknown Venipuncture / Unknown 08/20/2023 8:55 AM GEOSCIENCE LABORATORY TECHNICIAN 08/20/2023 9:11 AM GEOSCIENCE LABORATORY TECHNICIAN Abner Ramsey APRN LAB BLOOD ORDERABLES [facility] Unless otherwise noted, all lab tests performed by: Division of Pathology and Laboratory Medicine [address] [place] [id number] * X-ray Chest 2 Views (07/08/2023 12:09 PM GEOSCIENCE LABORATORY TECHNICIAN) Anatomical Region Laterality Modality Chest Digital Radiogra phy 07/08/2023 1:07 PM GEOSCIENCE LABORATORY TECHNICIAN Impressions 07/08/2023 1:11 PM GEOSCIENCE LABORATORY TECHNICIAN 1. Right upper lobe lung nodule is indeterminate. Attention on follow-up. 2. Improvement in pulmonary edema. Cardiomegaly. Dilated pulmonary arteries compatible with pulmonary hypertension. ACTIONABLE ITEMS/RECOMMENDATIONS: See IMPRESSION Narrative 07/08/2023 1:11 PM GEOSCIENCE LABORATORY TECHNICIAN FULL RESULT: Examination: XR CHEST 2 VW on 07/08/2023 12:09 PM. Clinical History: Follicular thyroid carcinoma Other abnormal tumor marker Postoperative hypothyroidism Long-term drug therapy Indication: Evaluation of Disease Progression Comparison: Chest radiograph 09/03/2022 Technique: Posteroanterior, lateral and dual-energy radiographs of the chest Findings: Support Apparatus: A left AICD has right ventricular lead. Lungs/Pleura: The lungs are adequately inflated without acute airspace consolidation. Small radiographically apparent pulmonary nodule in the right upper lobe. No pleural effusion or pneumothorax. Mediastinum: Pulmonary edema is improved. The heart remains mildly enlarged. The descending thoracic aorta is mildly ectatic. The pulmonary arteries are enlarged. Other: No destructive bone lesion or acute fracture is appreciated in the thorax. Procedure Note Larissa Mclaughlin MD - 07/08/2023 FULL RESULT: Examination: XR CHEST 2 VW on 07/08/2023 12:09 PM. Clinical History: Follicular thyroid carcinoma Other abnormal tumor marker Postoperative hypothyroidism Long-term drug therapy Indication: Evaluation of Disease Progression Comparison: Chest radiograph 09/03/2022 Technique: Posteroanterior, lateral and dual-energy radiographs of thechest Findings: Support Apparatus: A left AICD has right ventricular lead. Lungs/Pleura: The lungs are adequately inflated without acute airspaceconsolidation. Small radiographically apparent pulmonary nodule in theright upper lobe. No pleural effusion or pneumothorax. Mediastinum: Pulmonary edema is improved. The heart remains mildlyenlarged. The descending thoracic aorta is mildly ectatic. The pulmonaryarteries are enlarged. Other: No destructive bone lesion or acute fracture is appreciated in thethorax. IMPRESSION: 1. Right upper lobe lung nodule is indeterminate. Attention onfollow-up. 2. Improvement in pulmonary edema. Cardiomegaly. Dilated pulmonaryarteries compatible with pulmonary hypertension. ACTIONABLE ITEMS/RECOMMENDATIONS: See IMPRESSION Esha Lagunas MD IMG DIAGNOSTIC IMAG ING ORDERABLES * US Head Neck Soft Tissue (07/08/2023 11:34 AM GEOSCIENCE LABORATORY TECHNICIAN) Only the most recent of2 resultswithin the time period is included. Anatomical Region Laterality Modality Head, Neck Ultrasound 07/08/2023 2:24 PM GEOSCIENCE LABORATORY TECHNICIAN Impressions 07/08/2023 2:32 PM GEOSCIENCE LABORATORY TECHNICIAN 1. No recurrence in the right central compartment. 2. No nodules in the residual left lobe. 3. No lateral neck adenopathy. ACTIONABLE ITEMS/RECOMMENDATIONS: None. Narrative 07/08/2023 2:32 PM GEOSCIENCE LABORATORY TECHNICIAN FULL RESULT: Examination: US HEAD NECK SOFT TISSUE on 07/08/2023 11:34 AM. CLINICAL HISTORY: Follicular thyroid carcinoma Other abnormal tumor marker Postoperative hypothyroidism Long-term drug therapy INDICATION: Thyroid Cancer COMPARISON: 12/25/2022 and 08/28/2022. PROCEDURE COMMENTS: Real-time ultrasound examination of the neck soft tissues was performed. FINDINGS: Right Thyroid Lobe/Bed: No recurrence. Left Thyroid Lobe/Bed: Residual left lobe measures 0.7 x 2.0 x 0.7 cm, and is smaller since the preoperative examination. There is no worrisome nodularity. Suprasternal and Superior Mediastinal: No recurrence. Right Lateral Neck: No adenopathy. Left Lateral Neck: No adenopathy. Submental to Cricoid: No adenopathy. Procedure Note Polina Greco MD - 07/08/2023 FULL RESULT: Examination: US HEAD NECK SOFT TISSUE on 07/08/2023 11:34 AM. CLINICAL HISTORY: Follicular thyroid carcinoma Other abnormal tumor marker Postoperative hypothyroidism Long-term drug therapy INDICATION: Thyroid Cancer COMPARISON: 12/25/2022 and 08/28/2022. PROCEDURE COMMENTS: Real-time ultrasound examination of the neck softtissues was performed. FINDINGS: Right Thyroid Lobe/Bed: No recurrence. Left Thyroid Lobe/Bed: Residual left lobe measures 0.7 x 2.0 x 0.7 cm, andis smaller since the preoperative examination. There is no worrisomenodularity. Suprasternal and Superior Mediastinal: No recurrence. Right Lateral Neck: No adenopathy. Left Lateral Neck: No adenopathy. Submental to Cricoid: No adenopathy. IMPRESSION: 1. No recurrence in the right central compartment. 2. No nodules in the residual left lobe. 3. No lateral neck adenopathy. ACTIONABLE ITEMS/RECOMMENDATIONS: None. Esha Lagunas MD IMG ORDERABLES after 12/22/2022 Advance Directives * Full Code (Latest Code Status on File) Date Activated Date Inactivated Comments 09/03/2022 4:52 PM 09/04/2022 3:40 PM Care Teams Thread Reeler Relationship Specialty Start Date End Date Yasmani Martínez MD [address] [place] [id number] [address] [place] [id number] PCP - External Primary Care Provider Cardiology 06/20/22 Ana Love DO [address] [place] [id number] PCP - External Referring Otolaryngology 06/20/22 Rafa Britton MD [address] [place] [id number] PCP - General Head and Neck Surgery 06/21/22 Gerald Guzman MD [address] [place] [phone] Consulting Physician Internal Medicine 08/28/22 Delicia Almonte MD [address] [place] [phone] Consulting Physician Cardiology 08/28/22 Jana Handley MD [address] [place] [id number] Consulting Physician Urology 08/20/23 Shell Yuan MD [address] [place] [phone] Consulting Physician Urology 11/29/23
[2023-12-22 17:46] LABS: Absolute Lymphocytes (CBC) 0.8 K/uL (0.7-4.9); Absolute Monocytes 0.6 K/uL (0.1-1.3); Absolute Neutrophil 2.9 K/uL (1.8-8.0); Basophils % 0.6 % (0-1.3); Eosinophils % 0.3 % (0-4.4); Hematocrit 37.1 % (39.6-49.0); Hemoglobin 11.8 g/dL (13.6-17.9); Lymphocytes % 19.2 % (15.3-44.8); MCH 30.2 pg (27.0-35.0); MCHC 31.7 g/dL (32.0-36.0); MCV 95.1 fL (80-100); MPV 8.6 fL (7.6-11.3); Monocytes % 13.1 % (3.3-12.3); Neutrophils % 66.8 % (41.7-73.7); Nucleated Red Blood Cells % 0.2 % (0-0); Platelets 247 thou/uL (152-406); Red Cell Distribution Width 17.6 % (12.1-15.2)
[2023-12-22 17:56] LABS: PT Prothrombin Time 15.9 SECONDS (9.5-12.5); Protime INR 1.46
--- NOTE | 2023-12-22 18:10 | RAD REPORT ---
EXAM DESCRIPTION: CT - Head Brain Wo Cont - 12/22/2023 5:52 pm CLINICAL HISTORY: Extremity weakness COMPARISON: None TECHNIQUE: Computed axial tomography of the head was obtained. IV contrast was not requested. All CT scans are performed using dose optimization technique as appropriate and may include automated exposure control or mA/KV adjustment according to patient size. FINDINGS: An intracranial bleed is not seen The ventricles are normal in caliber No extra-axial fluid collection is noted. No significant hypodensity within the brain seen. Prominent cerebellar vermis atrophy Fluid within the sinuses/ mastoids is not seen. IMPRESSION: Prominent cerebellar vermis atrophy No acute intracranial abnormality is seen If patient's symptoms persist MRI of the brain would be recommended
[2023-12-22 18:16] LABS: Albumin/Globulin Ratio 0.8 (1.1-1.8); Anion Gap 7.4 mEq/L (5.0-15.0); Bilirubin Direct 0.4 mg/dL (0-0.2); Bilirubin Indirect, Calculated 0.4 mg/dL (0.2-0.8); Bilirubin Total 0.8 mg/dL (0.2-1.0); Magnesium 1.9 mg/dL (1.6-2.4); Potassium 4.4 mEq/L (3.5-5.1)
[2023-12-22 18:24] LABS: Troponin High Sensitivity 5026.6 pg/mL (<58.9)
--- NOTE | 2023-12-22 18:34 | RAD REPORT ---
EXAM DESCRIPTION: Nhan Single View12/22/2023 6:12 pm CLINICAL HISTORY: Shortness breath COMPARISON: none FINDINGS: Mild bilateral pulmonary opacities. There may small pleural effusions. The heart is moderately enlarged. Pacemaker in place. Postsurgical changes involve chest IMPRESSION: These findings may indicate mild CHF
[2023-12-22] MEDS ORDERED: ASPIRIN 81 MG CHEWABLE TABLET ONE (18:49)
[2023-12-22] MEDS ORDERED: FOLIC ACID 5 MG/ML VIAL ONE (18:49)
[2023-12-22] MEDS ORDERED: HEPARIN 5000 UNIT/ML 1 ML VIAL ONE (18:49)
[2023-12-22] MEDS ORDERED: HEPARIN/D5W 25,000 UNIT/500 ML BAG IV ONE (18:50)
[2023-12-22 19:21] LABS: Specific Gravity 1.023 (1.005-1.030); Sqamous Epithelial <5 /HPF (None Seen); Urine Bacteria <20 /HPF (<20); Urine Bilirubin NEGATIVE (Negative); Urine Blood Trace (Negative); Urine Clarity Clear (Clear); Urine Color Yellow (Yellow); Urine Culture Reflex Order NOT NEEDED; Urine Glucose NEGATIVE (Negative); Urine Ketones NEGATIVE (Negative); Urine Micro Reflex YN NO BILL MICROSCOPIC; Urine Mucus Slight /HPF (None Seen); Urine Nitrite NEGATIVE (Negative); Urine Protein 1+ (Negative); Urine RBC <5 /HPF (None Seen); Urine Urobilinogen 1+ (Normal); Urine WBC <5 /HPF (<5)
--- NOTE | 2023-12-22 19:29 | ER ---
Nurse's Notes [facility] Name: Chu Soria Jr Age: 73 yrs Sex: Male : 1950 Arrival Date: 12/22/2023 Time: 16:42 Bed 13 Private MD: Diagnosis: Subsequent non-ST elevation (NSTEMI) myocardial infarction Presentation: 12/21 17:00 Chief complaint: SOB with exertion, fatigue, and BLE swelling x 2 days. Coronavirus hb screen: At this time, the client does not indicate any symptoms associated with coronavirus-19. Ebola Screen: No symptoms or risks identified at this time. Initial Sepsis Screen: Does the patient meet any 2 criteria? No. Patient's initial sepsis screen is negative. Does the patient have a suspected source of infection? No. Patient's initial sepsis screen is negative. Risk Assessment: Do you want to hurt yourself or someone else? Patient reports no desire to harm self or others. Onset of symptoms was December 21, 2023. 17:00 Method Of Arrival: Wheelchair hb 17:00 Acuity: KENYETTA 2 hb Triage Assessment: 17:05 General: Appears in no apparent distress. ill, Behavior is calm, cooperative. Pain: hb Denies pain. Neuro: Level of Consciousness is obeys commands, lethargic, Oriented to person, place, time, situation. Cardiovascular: Patient's skin is warm and dry. Respiratory: Reports shortness of breath at rest on exertion Airway is patent Respiratory effort is even, unlabored, Respiratory pattern is regular, symmetrical, Onset: The symptoms/episode began/occurred yesterday, the patient has moderate shortness of breath. Historical: - Allergies: 17:00 No Known Allergies; hb - PMHx: 17:00 CHF; Hypertension; Thyroid Cancer; DM2; Atrial fibrillation; hb - PSHx: 17:00 Pacemaker; CABG; Partial Thyroidectomy; hb - Immunization history:: Adult Immunizations up to date. - Infectious Disease History:: Denies. - Social history:: Smoking status: Patient denies any tobacco usage or history of. Screenin:[facility] ED Fall Risk Assessment (Adult) History of falling in the last 3 months, kc6 including since admission No falls in past 3 months (0 pts) Confusion or Disorientation No (0 pts) Intoxicated or Sedated No (0 pts) Impaired Gait No (0 pts) Mobility Assist Device Used No (0 pt) Altered Elimination No (0 pt) Score/Fall Risk Level 0 - 2 = Low Risk. Abuse screen: Denies threats or abuse. Denies injuries from another. Nutritional screening: No deficits noted. Tuberculosis screening: No symptoms or risk factors identified. Assessment: 17:15 General: Appears in no apparent distress. comfortable, well groomed, well developed, kc6 Behavior is calm, cooperative, appropriate for age, drowsy, quiet. Pain: Denies pain. Neuro: Level of Consciousness is awake, alert, obeys commands, lethargic, Oriented to person, place, time, situation, Appropriate for age. Cardiovascular: Denies chest pain, shortness of breath, Heart tones S1 S2 present Capillary refill < 3 seconds Edema is 3+ to left ankle, left foot, right ankle and right foot pitting to left ankle, left foot, right ankle and right foot Rhythm is sinus rhythm. Respiratory: Airway is patent Trachea midline Respiratory effort is even, unlabored, Respiratory pattern is regular, symmetrical, Breath sounds are clear bilaterally. GI: No signs and/or symptoms were reported involving the gastrointestinal system. : No signs and/or symptoms were reported regarding the genitourinary system. EENT: No signs and/or symptoms were reported regarding the EENT system. Derm: No signs and/or symptoms reported regarding the dermatologic system. Skin is intact, is healthy with good turgor, Skin is pink, warm \T\ dry. Musculoskeletal: No signs and/or symptoms reported regarding the musculoskeletal system. Circulation, motion, and sensation intact. Capillary refill < 3 seconds, Range of motion: intact in all extremities. 18:12 Reassessment: Patient appears in no apparent distress at this time. No changes from kc6 previously documented assessment. Patient and/or family updated on plan of care and expected duration. Pain level reassessed. Patient is alert, oriented x 3, equal unlabored respirations, skin warm/dry/pink. 19:00 Reassessment: Patient appears in no apparent distress at this time. No changes from kc6 previously documented assessment. Patient and/or family updated on plan of care and expected duration. Pain level reassessed. Patient is alert, oriented x 3, equal unlabored respirations, skin warm/dry/pink. 19:33 General: Appears in no apparent distress. comfortable, Behavior is calm, cooperative. lg3 Pain: Denies pain. Neuro: No deficits noted. Anaya Agitation-Sedation Scale (RASS): 0 - Alert and Calm Level of Consciousness is awake, alert, obeys commands, Oriented to person, place, time, situation. Cardiovascular: Denies chest pain, shortness of breath, Capillary refill < 3 seconds Clubbing of nail beds is absent JVD is absent Patient's skin is warm and dry. Respiratory: No deficits noted. Airway is patent Respiratory effort is even, unlabored, Respiratory pattern is regular, symmetrical, Breath sounds are clear bilaterally. Denies shortness of breath. GI: No deficits noted. No signs and/or symptoms were reported involving the gastrointestinal system. : No deficits noted. No signs and/or symptoms were reported regarding the genitourinary system. EENT: No deficits noted. No signs and/or symptoms were reported regarding the EENT system. Derm: No deficits noted. No signs and/or symptoms reported regarding the dermatologic system. Skin is intact, is healthy with good turgor, Skin is dry, Skin is normal, Skin temperature is warm. Musculoskeletal: No deficits noted. No signs and/or symptoms reported regarding the musculoskeletal system. Circulation, motion, and sensation intact. Range of motion: intact in all extremities. Vital Signs: 17:00 BP 121 / 83; Pulse 66; Resp 20; Temp 98.1; Pulse Ox 100% ; Weight 72.57 kg; Height 5 hb ft. 6 in. ; Pain 0/10; 18:12 BP 127 / 95; Pulse 74; Resp 18 S; Pulse Ox 99% on R/A; kc6 19:07 BP 136 / 92; Pulse 77; Resp 20 S; Pulse Ox 97% on R/A; kc6 17:00 Body Mass Index 25.82 (72.57 kg, 167.64 cm) hb 17:00 Pain Scale: Adult hb ED Course: 16:43 Patient arrived in ED. ts1 17:00 Triage completed. hb 17:04 Arm band placed on. hb 17:06 Goyo Soares PA is PHCP. cp 17:06 Camila Jacob MD is Attending Physician. cp 17:08 Bella Cristobal, NOELLE is Primary Nurse. kc6 17:20 EKG done, by ED staff, reviewed by Goyo FERRARI. kc6 17:21 Patient has correct armband on for positive identification. Placed in gown. Bed in low kc6 position. Call light in reach. Side rails up X2. Adult w/ patient. Client placed on continuous cardiac and pulse oximetry monitoring. NIBP monitoring applied. property assessment monitor on. Pillow given. 17:38 Inserted saline lock: 20 gauge in right forearm, using aseptic technique. Blood kc6 collected. 17:54 CT Head Brain wo Cont In Process Unspecified. EDMS 18:13 XRAY Chest (1 view) In Process Unspecified. EDMS 19:00 Report given to NOELLE Hernandez. kc6 19:27 Audie Mendenhall MD is Hospitalizing Provider. cp 19:33 No provider procedures requiring assistance completed. Patient admitted, IV remains in lg3 place. 19:52 Primary Nurse role handed off by Bella Cristobal RN as6 Administered Medications: 18:38 CANCELLED (Physician Discretion): [id number] mg PO once cp 18:59 Drug: Heparin ([place]-Bolus No thrombolytic) - HEParin IVP 60 units/kg IVP once; Max 5000 kc6 units {Co-Signature: ced (Kandis Handy RN).} Route: IVP; Site: right forearm; 19:38 Follow up: Response: No adverse reaction lg3 18:59 Drug: Heparin ([place] Drip) 12 units/kg/[place] - ([place] [address] units, D5W IV 500 ml) IV at kc6 calculated rate Per protocol; Max initial rate 1000 units/hr {Co-Signature: db (Kandis Handy RN).} Route: IV; Rate: calculated rate; Site: right forearm; 19:02 Drug: foLIC Acid IVPB 1 mg IVPB once Route: IVPB; Site: right forearm; kc6 19:38 Follow up: IV Status: Completed infusion lg3 19:02 Drug: Aspirin PO Chewable Tablet 324 mg PO once; 81 mg tablets x 4 Route: PO; kc6 19:38 Follow up: Response: No adverse reaction lg3 Medication: 19:33 VIS not applicable for this client. lg3 Outcome: 19:28 Decision to Hospitalize by Provider. cp 22:06 Patient left the ED. lg3 Signatures: Dispatcher [employer] EDMS Goyo Soares PA PA cp Baxter, Heather, RN RN Mary Lane RN RN lg3 Osmel Molina, RN RN as6 Bella Cristobal, RN RN kc6 Katelynn Chen, ASHOK PULIDO ts1 Kandis Handy RN db
--- NOTE | 2023-12-22 19:29 | EDPHYS ---
Physician Documentation [facility] Name: Chu Soria Jr Age: 73 yrs Sex: Male : 1950 Arrival Date: 12/22/2023 Time: 16:42 Bed 13 Private MD: ED Physician Camila Jacob HPI: 12/21 17:35 This 73 yrs old Black Male presents to ER via Wheelchair with complaints of Shortness cp Of Breath, Syncope, STOMACH FLUID. 17:35 The patient has shortness of breath with light activity. Onset: The symptoms/episode cp began/occurred 2 day(s) ago. Duration: The symptoms are continuous, and are steadily getting worse. Associated signs and symptoms: Pertinent negatives: chest pain, non-productive cough, productive cough, fever. Patient is a 73-year-old male with past medical history significant for CHF, hypertension, A-fib who was brought to the emergency department accompanied by his daughter who reports patient has had increasing shortness of breath over the last 2 days. Daughter reports patient had an episode in judaism today in which patient was walking and suddenly stopped and appeared to gaze off and was unresponsive but there was no loss of consciousness and patient did not fall to the ground. Patient presents today complaining of general weakness and reports he has had weakness of the right side of his body for the past 2 weeks that is been getting worse. Historical: - Allergies: 17:00 No Known Allergies; hb - PMHx: 17:00 CHF; Hypertension; Thyroid Cancer; DM2; Atrial fibrillation; hb - PSHx: 17:00 Pacemaker; CABG; Partial Thyroidectomy; hb - Immunization history:: Adult Immunizations up to date. - Infectious Disease History:: Denies. - Social history:: Smoking status: Patient denies any tobacco usage or history of. ROS: 17:40 Constitutional: Negative for body aches, chills, fever, poor PO intake, cp 17:40 Eyes: Negative for injury, pain, redness, and discharge, cp 17:40 ENT: Negative for drainage from ear(s), ear pain, sore throat, difficulty swallowing, difficulty handling secretions, 17:40 Cardiovascular: Negative for chest pain, 17:40 Respiratory: Positive for shortness of breath, Negative for cough, wheezing, 17:40 Abdomen/GI: Negative for abdominal pain, vomiting, diarrhea, constipation, black/tarry stool, rectal bleeding, 17:40 Back: Negative for pain at rest, pain with movement, 17:40 : Negative for urinary symptoms, 17:40 Neuro: Positive for weakness, reports right side worse than left, Negative for altered mental status, headache, numbness, speech changes, syncope, 17:40 All other systems are negative, Exam: 17:22 ECG was reviewed by the Attending Physician. cp 17:45 Constitutional: The patient appears in no acute distress, alert, awake, cp non-diaphoretic, non-toxic, well developed, well nourished, 17:45 Head/Face: Normocephalic, atraumatic. cp 17:45 Eyes: Periorbital structures: appear normal, Pupils: equal, round, and reactive to light and accomodation, Extraocular movements: intact throughout, Conjunctiva: normal, no exudate, no injection, Sclera: no appreciated abnormality, Lids and lashes: appear normal, bilaterally, 17:45 ENT: External ear(s): are unremarkable, Nose: is normal, Mouth: Lips: moist, Oral mucosa: pink and intact, moist, Posterior pharynx: Airway: no evidence of obstruction, patent, 17:45 Neck: ROM/movement: is normal, is supple, without pain, no range of motions limitations, no meningismus, no nuchal rigidity, 17:45 Chest/axilla: Inspection: normal, Palpation: is normal, no crepitus, no tenderness, 17:45 Cardiovascular: Rate: normal, Rhythm: regular, Edema: ankle edema, that is mild, JVD: is not appreciated, 17:45 Respiratory: the patient does not display signs of respiratory distress, Respirations: labored breathing, is not present, shallow respirations, that is mild, Breath sounds: are clear throughout, decreased breath sounds, that are mild, throughout, 17:45 Abdomen/GI: Inspection: abdomen appears normal, Palpation: abdomen is soft and non-tender, in all quadrants, 17:45 Back: pain, is absent, ROM is normal, 17:45 Skin: cellulitis, is not appreciated, no rash present. 17:45 Neuro: Orientation: to person, place \T\ time. Mentation: able to follow commands, slow to respond, Cerebellar function: Romberg testing is negative, Motor: moves all fours, no focal deficits, Sensation: no obvious gross deficits, Vital Signs: 17:00 BP 121 / 83; Pulse 66; Resp 20; Temp 98.1; Pulse Ox 100% ; Weight 72.57 kg; Height 5 hb ft. 6 in. ; Pain 0/10; 18:12 BP 127 / 95; Pulse 74; Resp 18 S; Pulse Ox 99% on R/A; kc6 19:07 BP 136 / 92; Pulse 77; Resp 20 S; Pulse Ox 97% on R/A; kc6 17:00 Body Mass Index 25.82 (72.57 kg, 167.64 cm) hb 17:00 Pain Scale: Adult hb MDM: 17:06 Patient medically screened. cp 18:38 Management of patient was discussed with the following: Electrician Bus: DR Garcia requests cp heparin drip and aspirin. Keep npo after midnight. 18:45 Data reviewed: vital signs, nurses notes, lab test result(s), EKG, radiologic studies, cp plain films. 18:45 Consideration of Admission/Observation Patient was admitted/placed on observation. cp 19:30 Care significantly affected by the following chronic conditions: Diabetes, Congestive cp Heart Failure. Counseling: I had a detailed discussion with the patient and/or guardian regarding the historical points, exam findings, and any diagnostic results supporting the discharge/admit diagnosis, lab results, radiology results. 12/21 17:29 Order name: Basic Metabolic Panel; Complete Time: 18:26 cp 12/21 18:26 Interpretation: Normal except: CL 108; GLUC 123; BUN 27; GFR 67. cp 12/21 17:29 Order name: CBC with Diff; Complete Time: 18:26 cp 12/21 19:24 Interpretation: Normal except: RBC 3.90; HGB 11.8; HCT 37.1; MCHC 31.7; RDW 17.6; MN% cp 13.1. 12/21 17:29 Order name: LFT's; Complete Time: 18:26 cp 12/21 17:29 Order name: Magnesium; Complete Time: 18:26 cp 12/21 17:29 Order name: NT PRO-BNP; Complete Time: 18:26 cp 12/21 18:26 Interpretation: Reviewed. 12/21 17:29 Order name: PT-INR; Complete Time: 18:26 cp 12/21 17:29 Order name: Troponin HS; Complete Time: 18:26 cp 06/02 18:26 Interpretation: Reviewed. cp 06/02 17:29 Order name: Urinalysis W/Microscopic; Complete Time: 19:23 cp 06/02 19:24 Interpretation: Normal except: UBLD Trace; UPROT 1+; UUROB 1+. cp 06/02 18:43 Order name: Ptt, Activated; Complete Time: 19:23 kc6 06/02 19:53 Order name: Glucose, Ancillary Testing EDMS / 20:02 Order name: Urinalysis w/ reflexes EDMS / 20:02 Order name: CBC with Automated Diff EDMS /02 20:02 Order name: CBC with Automated Diff EDMS /02 20:02 Order name: Comprehensive Metabolic Panel EDMS / 20:02 Order name: Comprehensive Metabolic Panel EDMS / 20:02 Order name: Magnesium EDMS /02 20:02 Order name: Magnesium EDMS /02 20:02 Order name: Phosphorus EDMS / 20:02 Order name: Phosphorus EDMS /02 20:02 Order name: Troponin High Sensitivity EDMS 06/02 20:02 Order name: Troponin High Sensitivity EDMS 06/02 20:02 Order name: Troponin High Sensitivity EDMS 06/02 20:02 Order name: Troponin High Sensitivity EDMS 06/02 17:29 Order name: CT Head Brain wo Cont; Complete Time: 18:26 cp 06/02 17:29 Order name: XRAY Chest (1 view); Complete Time: 18:37 cp 06/02 20:02 Order name: CONS Physician Consult EDMS /02 17:29 Order name: Cardiac monitoring; Complete Time: 17:38 cp 06/02 17:29 Order name: EKG - Nurse/Tech; Complete Time: 17:38 cp 06/02 17:29 Order name: IV Saline Lock; Complete Time: 17:38 cp 06/02 17:29 Order name: Labs collected and sent; Complete Time: 17:38 cp 06/02 17:29 Order name: O2 Per Protocol; Complete Time: 17:38 cp 06/02 17:29 Order name: O2 Sat Monitoring; Complete Time: 17:38 cp EC:22 Rate is 76 beats/min. Rhythm is regular. KS interval is prolonged at 204 msec. QRS cp interval is normal. QT interval is normal. T waves are Inverted in lead aVR. Interpreted by me. Reviewed by me. Administered Medications: 18:38 CANCELLED (Physician Discretion): [id number] mg PO once cp 18:59 Drug: Heparin ([place]-Bolus No thrombolytic) - HEParin IVP 60 units/kg IVP once; Max 5000 kc6 units {Co-Signature: ced (Kandis Handy RN).} Route: IVP; Site: right forearm; 19:38 Follow up: Response: No adverse reaction lg3 18:59 Drug: Heparin ([place] Drip) 12 units/kg/[place] - ([place] [address] units, D5W IV 500 ml) IV at kc6 calculated rate Per protocol; Max initial rate 1000 units/hr {Co-Signature: ced (Kandis Handy RN).} Route: IV; Rate: calculated rate; Site: right forearm; 19:02 Drug: foLIC Acid IVPB 1 mg IVPB once Route: IVPB; Site: right forearm; kc6 19:38 Follow up: IV Status: Completed infusion lg3 19:02 Drug: Aspirin PO Chewable Tablet 324 mg PO once; 81 mg tablets x 4 Route: PO; kc6 19:38 Follow up: Response: No adverse reaction lg3 Disposition: 12/22 20:38 Critical Care:. cp Disposition Summary: 12/22/23 19:28 Hospitalization Ordered Notes: Hospitalization Status: Inpatient Admission cp Provider: Audie Mendenhall cp Location: Intensive Care Unit cp Condition: Fair cp Problem: new cp Symptoms: have improved cp Bed/Room Type: Standard cp Room Assignment: 5-(12/22/23 21:15) as6 Diagnosis - Subsequent non-ST elevation (NSTEMI) myocardial infarction cp Forms: - Medication Reconciliation Form cp - SBAR form cp - Leadership Thank You Letter cp Critical care time excluding procedures: 20:38 Critical care time: Bedside Care: 7 minutes, Consultation: 20 minutes, Family cp Intervention: 7 minutes. Total time: 34 minutes Signatures: Dispatcher [employer] EDMS Goyo Soares PA PA cp Gloria Diane RN Mary Haskins RN RN lg3 Osmel Molina RN RN as6 Bella Cristobal RN RN kc6 Kandis Handy RN Corrections: (The following items were deleted from the chart) 12/21 17:30 17:30 Head Brain Wo Cont+CT.RAD.BRZ ordered. EDMS EDMS 17:30 17:30 BASIC METABOLIC PANEL+C.LAB.BRZ ordered. EDMS EDMS 17:30 17:30 CBC+H.LAB.BRZ ordered. EDMS EDMS 17:30 17:30 HEPATIC FUNCTION+C.LAB.BRZ ordered. EDMS EDMS 17:30 17:30 MAGNESIUM+C.LAB.BRZ ordered. EDMS EDMS 17:30 17:30 PROBNP+C.LAB.BRZ ordered. EDMS EDMS 17:30 17:30 PROTIME (+INR)+COAG.LAB.BRZ ordered. EDMS EDMS 17:30 17:30 Troponin High Sensitivity+C.LAB.BRZ ordered. EDMS EDMS 17:30 17:30 Urinalysis W/Microscopic+U.LAB.BRZ ordered. EDMS EDMS 17:30 17:30 Chest Single View+RAD.RAD.BRZ ordered. EDMS EDMS 18:38 18:34 Clopidogrel PO 300 mg PO once ordered. cp cp 18:43 18:43 PTT, ACTIVATED+COAG.LAB.BRZ ordered. EDMS EDMS 21:15 19:28 cp as6
[2023-12-22] MEDS ORDERED: ACETAMINOPHEN 325 MG TABLET PO PRN (19:57)
[2023-12-22] MEDS ORDERED: ONDANSETRON 4 MG/2 ML VIAL IV PRN (19:57)
--- NOTE | 2023-12-22 19:57 | P.HP ---
Certification for Inpatient Patient admitted to: Inpatient With expected LOS: >2 Midnights Practitioner: I am a practitioner with admitting privileges, knowledge of patient current condition, hospital course, and medical plan of care. Services: Services provided to patient in accordance with Admission requirements found in Title 42 Section 412.3 of the Code of Federal Regulations Patient History Date of Service: 12/22/23 Reason for admission: Chest pain History of Present Illness: 73-year-old male with past medical history of CAD status post CABG, follicular thyroid cancer status post partial resection, hypertension hyperlipidemia, atrial fibrillation paroxysmal, history of BPH, nodules in the lung brought to ER with chest pain. Pain is located retrosternally not radiation intermittent, was 6 out of 10 in severity. Pressure-like feeling. At the time of interview patient does not have any chest pain. No fever or chills. No nausea vomiting or diarrhea. Patient was assessed in the ER and was found to have NSTEMI and was admitted for further management. Allergies No Known Allergies Allergy (Unverified 12/22/23 21:34) Home medications list reviewed: Yes Home Medications: Carvedilol [Coreg] 12.5 mg PO BID 12/22/23 Levothyroxine Sodium 137 mcg PO DAILY 12/22/23 Metformin HCl 1,000 mg PO BID 12/22/23 Sacubitril/Valsartan [Entresto 97 mg-103 mg Tablet] 1 tab PO DAILY 12/22/23 Spironolactone [Aldactone] 25 mg PO DAILY 12/22/23 - Past Medical/Surgical History Past Medical History: Reviewed- Non-Contributory -: Thyroidectomy -: CAD status post CABG, follicular thyroid cancer status post partial resecti - Family History Family History: Reviewed- Non-Contributory - Family History Brother -: Hypertension, Cancer Sister -: Hypertension, Diabetes, Cancer Mother -: Hypertension, Diabetes - Social History Smoking Status: Never smoker Review of Systems 10-point ROS is otherwise unremarkable Physical Examination - Vital Signs Temperature: 98.1 F Blood Pressure: 122/78 Pulse: 78 Respirations: 18 Pulse Ox (%): 94 - Physical Exam General: Alert, In no apparent distress, Oriented x3 HEENT: Atraumatic, Normocephalic Neck: Supple, 2+ carotid pulse no bruit Respiratory: Clear to auscultation bilaterally, Normal air movement Cardiovascular: Regular rate/rhythm, Normal S1 S2, No murmurs Capillary refill: <2 Seconds Gastrointestinal: Soft and benign, Non-distended, W/out hepatosplenomegaly Musculoskeletal: No clubbing, No swelling Integumentary: No significant lesion, No tenderness/swelling Neurological: Normal strength at 5/5 x4 extr, Cranial nerves 3-12 intact, Normal reflexes 2+, Normal affect Lymphatics: No axilla or inguinal lymphadenopathy - Studies Laboratory Data (last 24 hrs) 12/22/23 12/22/23 12/22/23 17:36 17:36 17:36 WBC 4.30 Hgb 11.8 L Hct 37.1 L Plt Count 247 PT 15.9 H INR 1.46 APTT 32.5 Sodium Potassium BUN Creatinine Glucose Magnesium Total Bilirubin AST ALT Alkaline Phosphatase 12/22/23 17:36 WBC Hgb Hct Plt Count PT INR APTT Sodium 138 Potassium 4.4 BUN 27 H Creatinine 1.14 Glucose 123 H Magnesium 1.9 Total Bilirubin 0.8 AST 53 H ALT 41 Alkaline Phosphatase 195 H Assessment and Plan - Problems (Diagnosis) (1) NSTEMI (non-ST elevated myocardial infarction) Current Visit: Yes Status: Acute Plan: NSTEMI Will trend cardiac enzymes Will monitor telemetry Started on aspirin and statin EKG findings noted Patient denies any chest pain at this time Will get an echocardiogram Cardiology consult Started on heparin drip N.p.o. postmidnight Possible LHC in a.m. CAD status post CABG Continue home medications and titrate Follicular thyroid cancer status post partial resection Will get TSH level Hypertension Antihypertensives titrated Continue home medications and titrate as needed Hyperlipidemia Continue statin Anemia of chronic disease Monitor H&H closely No overt bleeding at this time atrial fibrillation paroxysmal, history of BPH Continue home medications and titrate GI/DVT prophylaxis Advanced directive full code Discharge Plan: Home Plan to discharge in: 48 Hours - Advance Directives Does patient have a Living Will: No Does patient have a Durable POA for Healthcare: No - Code Status/Comfort Care Code Status: Full Code Time Spent Managing Pts Care (In Minutes): 48
[2023-12-22] MEDS ORDERED: HEPARIN/D5W 25,000 UNIT/500 ML BAG IV PRN (22:17)
[2023-12-22] MEDS: ATORVASTATIN 40 MG TAB PO SCH (22:44)
[2023-12-23 02:39] LABS: Specific Gravity 1.024 (1.005-1.030); Sqamous Epithelial <5 /HPF (None Seen); Urine Bacteria None Seen /HPF (<20); Urine Bilirubin NEGATIVE (Negative); Urine Blood Negative (Negative); Urine Clarity Clear (Clear); Urine Color Yellow (Yellow); Urine Culture Reflex Order NOT NEEDED; Urine Glucose NEGATIVE (Negative); Urine Ketones NEGATIVE (Negative); Urine Microscopic Reflex YN ORDER UMIC; Urine Nitrite NEGATIVE (Negative); Urine Protein 1+ (Negative); Urine RBC <5 /HPF (None Seen); Urine Urobilinogen 1+ (Normal); Urine WBC <5 /HPF (<5)
[2023-12-23 04:59] VITALS: BMI 26.7
[2023-12-23 06:19] LABS: Absolute Eosinophils 0.1 K/uL (0-0.5); Absolute Lymphocytes (CBC) 1.2 K/uL (0.7-4.9); Absolute Neutrophil 2.6 K/uL (1.8-8.0); Basophils % 0.6 % (0-1.3); Hemoglobin 12.7 g/dL (13.6-17.9); Nucleated RBC Absolute Count 0.1 (0-0)
[2023-12-23 06:25] LABS: Absolute Monocytes 0.7 K/uL (0.1-1.3); Eosinophils % 1.3 % (0-4.4); Hematocrit 39.1 % (39.6-49.0); MCH 30.8 pg (27.0-35.0); MCHC 32.4 g/dL (32.0-36.0); MCV 95.1 fL (80-100); MPV 9.2 fL (7.6-11.3); Monocytes % 15.1 % (3.3-12.3); Nucleated Red Blood Cells % 1.4 % (0-0); Platelets 232 thou/uL (152-406); RBC Red Blood Cell Count 4.11 M/uL (4.33-5.43); Red Cell Distribution Width 17.3 % (12.1-15.2)
[2023-12-23 06:42] LABS: Albumin 3.1 g/dL (3.4-5.0); Albumin/Globulin Ratio 0.7 (1.1-1.8); Anion Gap 7.2 mEq/L (5.0-15.0); Bilirubin Total 0.7 mg/dL (0.2-1.0); Globulin 4.5 g/dL (2.3-3.5); Magnesium 1.6 mg/dL (1.6-2.4); Potassium 4.2 mEq/L (3.5-5.1); Protein, Total 7.6 g/dL (6.4-8.2)
[2023-12-23 07:30] LABS: Differential Total Cells Count 100
[2023-12-23 07:31] LABS: Band Neutrophils 2 % (0-1); Eosinophils 1 % (0-3); Lymphocytes 28 % (15-42); Monocytes 13 % (0-10); Segmented Neutrophils 55 % (40-80)
[2023-12-23 07:32] LABS: Anisocytosis 1+; Blood Morphology Comment NOTED (NOT SEEN); Platelet Estimate ADEQ
[2023-12-23 07:33] LABS: Polychromasia SLIGHT
[2023-12-23] MEDS ORDERED: HEPA 1000U/500MLS 2,000 UNIT/1,000 ML BAG IV ONE (08:02)
[2023-12-23] MEDS ORDERED: LIDOCAINE 1% 20 ML MDV ONE (08:02)
[2023-12-23] MEDS ORDERED: ATROPINE SULF 1 MG/10 ML SYR IV ONE (08:03)
[2023-12-23] MEDS ORDERED: FENTANYL CITR 100 MCG/2 ML ONE (08:03)
[2023-12-23] MEDS ORDERED: MIDAZOLAM HCL 2 MG/2 ML INJ ONE (08:03)
[2023-12-23] MEDS ORDERED: CLOPIDOGREL 75 MG TABLET ONE (08:04)
[2023-12-23] MEDS ORDERED: TICAGRELOR 90 MG TABLET PO ONE (08:04)
[2023-12-23] MEDS ORDERED: HEPARIN 10,000 UNIT/10 ML VIAL IV ONE (08:04)
[2023-12-23] MEDS ORDERED: NA CHLORIDE 0.9% 500 ML ONE (08:04)
[2023-12-23] MEDS ORDERED: ASPIRIN 325 MG TAB ONE (08:05)
[2023-12-23] MEDS ORDERED: NITROGLYCERIN/D5W 50 MG/250 ML BTL IV ONE (08:05)
[2023-12-23] MEDS: ASPIRIN EC 81 MG TAB PO SCH (09:00)
--- NOTE | 2023-12-23 10:17 | P.CNS ---
Date of Consult: 12/23/23 Chief Complaint: Chest pain History of Present Illness: Patient with PMH of pAF, HTN, HLD and CAD s/p CABG presented with weakness and chest pain, denies any other cardiac symptoms, no SOB, no palpitations, no syncope. Allergies No Known Allergies Allergy (Unverified 12/22/23 21:34) Home Medications: Carvedilol [Coreg] 12.5 mg PO BID 12/22/23 Levothyroxine Sodium 137 mcg PO DAILY 12/22/23 Metformin HCl 1,000 mg PO BID 12/22/23 Sacubitril/Valsartan [Entresto 97 mg-103 mg Tablet] 1 tab PO DAILY 12/22/23 Spironolactone [Aldactone] 25 mg PO DAILY 12/22/23 - Past Medical/Surgical History Diabetic: Yes -: CAD -: Htn -: DM2 -: Thyroid cancer -: CHF -: afib -: BPH -: Hyperlipidemia -: Thyroidectomy -: CAD status post CABG, follicular thyroid cancer status post partial resecti -: Partial resection Thyroid - Family History Brother Medical History: Hypertension, Cancer Sister Medical History: Hypertension, Diabetes, Cancer Mother Medical History: Hypertension, Diabetes - Social History Alcohol use: No CD- Drugs: No Caffeine use: Yes Place of Residence: Home Review of Systems 10-point ROS is otherwise unremarkable Physical Examination Temp Pulse Resp BP Pulse Ox 97.7 F 82 33 H 152/98 H 96 12/23/23 08:00 12/23/23 08:00 12/23/23 08:00 12/23/23 08:00 12/23/23 08:00 General: Alert, In no apparent distress HEENT: Atraumatic, PERRLA, Mucous membr. moist/pink, EOMI, Sclerae nonicteric Neck: Supple, 2+ carotid pulse no bruit, No LAD, Without JVD or thyroid abnormality Respiratory: Clear to auscultation bilaterally, Normal air movement Cardiovascular: Regular rate/rhythm, Normal S1 S2 Gastrointestinal: Normal bowel sounds, No tenderness Musculoskeletal: No tenderness Integumentary: No rashes Neurological: Normal gait, Normal speech, Normal tone, Normal affect Lymphatics: No axilla or inguinal lymphadenopathy Laboratory Data (last 24 hrs) 06/02/24 06/02/24 06/02/24 17:36 17:36 17:36 WBC 4.30 Hgb 11.8 L Hct 37.1 L Plt Count 247 PT 15.9 H INR 1.46 APTT 32.5 Sodium Potassium BUN Creatinine Glucose Magnesium Total Bilirubin AST ALT Alkaline Phosphatase 12/22/23 17:36 WBC Hgb Hct Plt Count PT INR APTT Sodium 138 Potassium 4.4 BUN 27 H Creatinine 1.14 Glucose 123 H Magnesium 1.9 Total Bilirubin 0.8 AST 53 H ALT 41 Alkaline Phosphatase 195 H - Problems (1) HTN (hypertension) Current Visit: Yes Status: Acute Plan: start patient on Metoprolol 50 mg po BID resume patient home dose Spirnolactone and Entresto in am. (2) Congestive heart failure Current Visit: Yes Status: Acute Plan: Metoprolol 50 mg po BID Resume home dose of spirnolactone and Entresto in am (3) NSTEMI (non-ST elevated myocardial infarction) Current Visit: Yes Status: Acute Plan: Patient is s/p coronary angiogram with patent COBB-LAD and occluded vein grafts, s/p PCI of LM into LCX with Synergy 3.0x24 mm DERIK, will need staged PCI of RCA in 4-6 weeks. ASA 81 mg daily for life. Brilinta 90 mg po BID for 12 months Lipitor 40 mg daily
--- NOTE | 2023-12-23 11:50 | P.PN ---
Subjective Date of Service: 12/23/23 Chief Complaint: Chest pain Pt is resting comfortably in bed. S/p Cardiac cath with PCI placement. Will continue brilinta and aspirin. Pt will need staged PCI over the next 3 - 4 weeks. No other issues overnight. Review of Systems General: Unremarkable Eyes: Unremarkable ENT: Unremarkable Respiratory: Unremarkable Cardiovascular: Unremarkable Gastrointestinal: Unremarkable Genitourinary: Unremarkable Musculoskeletal: Unremarkable Integumentary: Unremarkable Neurological: Unremarkable Lymphatics: Unremarkable Physical Examination - Vital Signs Temperature: 97.7 F Blood Pressure: 152/98 Pulse: 82 Respirations: 33 Pulse Ox (%): 96 - Physical Exam General: Alert, In no apparent distress, Oriented x3 HEENT: Atraumatic, Normocephalic, PERRLA Neck: Supple, 2+ carotid pulse no bruit, JVD not distended Respiratory: Clear to auscultation bilaterally, Normal air movement Cardiovascular: No edema, Normal pulses, Regular rate/rhythm, Normal S1 S2 Capillary refill: <2 Seconds Gastrointestinal: Normal bowel sounds, Soft and benign, Non-distended Musculoskeletal: No clubbing, No swelling, No contractures Integumentary: No rashes, No breakdown, No significant lesion Neurological: Normal gait, Normal speech, Normal strength at 5/5 x4 extr, Normal tone Lymphatics: No axilla or inguinal lymphadenopathy - Studies Laboratory Data (last 24 hrs) 12/22/23 12/22/23 12/22/23 17:36 17:36 17:36 WBC 4.30 Hgb 11.8 L Hct 37.1 L Plt Count 247 PT 15.9 H INR 1.46 APTT 32.5 Sodium Potassium BUN Creatinine Glucose Magnesium Total Bilirubin AST ALT Alkaline Phosphatase 12/22/23 17:36 WBC Hgb Hct Plt Count PT INR APTT Sodium 138 Potassium 4.4 BUN 27 H Creatinine 1.14 Glucose 123 H Magnesium 1.9 Total Bilirubin 0.8 AST 53 H ALT 41 Alkaline Phosphatase 195 H Assessment And Plan - Plan NSTEMI: Troponin is 5543 <- 5026. Cardiology did cardiac cath today. Will continue brilinta and aspirin for at least 1 year and lipitor. Pt will need staged PCI of RCA in 4-6 weeks. CAD status post CABG: Will continue home meds Follicular thyroid cancer status post partial resection: Will check TSH level. Hypertension: Will continue metoprolol and spironolacton. Hx of CHF: Continue metoprolol, entresto and spirinolactone. Hyperlipidemia: Continue statin Anemia of chronic disease: hgb 12.7. Will monitor H/H. No overt bleeding at this time A. fibrillation paroxysmal: Will continue telemetry History of BPH: Continue flomax GI ppx: protonix DVT ppx: SCD Code: full code
[2023-12-23] MEDS: METOPROLOL TAR 50 MG TAB PO ONE (12:24)
[2023-12-23] MEDS: POLYETHYL GLY 3350 17 GM/DOSE ONE (13:08)
[2023-12-23] MEDS: POLYETHYL GLY 3350 17 GM/DOSE PO ONE (13:13)
--- NOTE | 2023-12-23 14:07 | EKG ---
Test Date: 2023-12-22 Test Time: 17:16:01 Salesperson Driver: ZOEY MEASUREMENT RESULTS: Intervals: Rate: 76 [place]: 204 QRSD: 100 QT: 420 QTc: 472 [place]: P: 74 [place]: 204 QRS: 127 T: -77 INTERPRETIVE STATEMENTS: Sinus rhythm with premature atrial complexes Right ventricular hypertrophy Anterior infarct, age undetermined ST & T wave abnormality, consider inferior ischemia Abnormal ECG No previous ECG available for comparison Electronically Signed On 12-23-23 14:04:56 CDT by Lonnie Garcia
[2023-12-23] MEDS: MORPHINE 4 MG/ML SYR IV PRN (19:05)
--- NOTE | 2023-12-23 20:26 | OP ---
Date of Procedure: 12/23/2023 Surgeon: Efren Johnson Procedures Performed: 1.Left heart catheterization. 2.Selective coronary angiogram of bypass graft. 3.PCI of the left main into left circ. Indication For Procedure: Hhi-ZD-cruohqath NH. Complications: None. Sedation Time: 60 minutes with 1 of Versed and 75 of fentanyl. Access: Right common femoral artery, closed by an Angio-Seal. Estimated Blood Loss: Less than 50 cc. Description Of Procedure: After risks, and benefits, and alternatives were explained to the patient, patient agreed to proceed with procedure and signed informed consent. The patient was brought back to the dental laboratory supervisor, prepped and draped in sterile fashion. A time-out was performed. Sedation was admi nistered. A 6-Tristanian ultrasound-guided micropuncture technique was obtained into the right groin. J L4 catheter was used for selective angiogram of the left coronary artery system. JR4 catheter was us ed for selective coronary angiogram of the right coronary system and the COBB and the SVG graft. Thi s catheter was later exchanged for an EBU3.5 mm guide that was advanced over the J-wire and heparin w as administered and a CT was therapeutic and so a Runthrough wire entered from left main into left ci rc, pre-dilated lesions with a 2.75 mm balloon. Next, Synergy 3.0 x 24 mm drug-eluting stent was troy lesly across the lesion, postdilated with 3.5 mm NC balloon and ABDIRAHMAN-3 flow at the end of procedures. Wire was removed. Catheter was removed and sheath was removed and access was closed with an Angio-Se al. Hemostasis was achieved and the patient was moved back to recovery in stable condition. Findings: 1.Left main; distal 90% disease. 2.Left circ, mild LI, continued as a large OM1 with mid 40% disease. 3.LAD; mid occluded. 4.RCA; mid 78% disease. Grafts: 1.COBB to LAD is patent. 2.SVG to RPDA is occluded. 3.SVG to OM is occluded. Assessment And Plan: 1.Significant distal left main into left circumflex disease. PCI done with Synergy 3.0 x 24 mm drug -eluting stent. 2.Significant mid RCA disease. Staged PCI needs to be done. 3.Significant [place] CAD with only patent COBB to LAD with occluded rest of the grafts. Plan will be: 1.Aspirin 325 x1 was given in the dental laboratory supervisor. Continue aspirin 81 mg daily. 2.Brilinta 180 x1 was given in the dental laboratory supervisor. Continue Brilinta 90 mg p.o. b.i.d. 3.Continue aggressive medical treatment for CAD. 4.Staged PCI of the RCA to be done in 4 to 6 weeks. EVI/KEILA Voice ID: [id number] Report ID: [id number]
[2023-12-23] MEDS: TICAGRELOR 90 MG TABLET PO SCH (21:18)
[2023-12-23] MEDS: METOPROLOL TAR 50 MG TAB PO SCH (21:19)
[2023-12-23] MEDS: LORAZEPAM 0.5 MG TABLET PO PRN (22:17)
[2023-12-24] MEDS: ZIPRASIDONE MESYLA 20 MG/VIAL IM ONE (02:03)
[2023-12-24] MEDS: WATER FOR INJ,STERILE 10 ML IM PRN (02:04)
[2023-12-24] MEDS ORDERED: LEVOTHYROXINE SOD 0.112 MG TAB PO SCH (09:00)
[2023-12-24] MEDS ORDERED: LEVOTHYROXINE SOD 0.025 MG TAB PO SCH (09:00)
[2023-12-24] MEDS ORDERED: ASPIRIN 81 MG CHEWABLE TABLET PO SCH (09:00)
[2023-12-24 09:35] LABS: MPV 9.1 fL (7.6-11.3); Platelets 203 thou/uL (152-406)
[2023-12-24 09:54] LABS: Anion Gap 14.2 mEq/L (5.0-15.0); Magnesium 2.2 mg/dL (1.6-2.4); Potassium 5.2 mEq/L (3.5-5.1)
--- NOTE | 2023-12-24 11:00 | P.PN ---
Subjective Date of Service: 12/24/23 Chief Complaint: Chest pain Confused overnight. Daughter states this is common post anesthesia. <Michelle Nevarezlen - Last Filed: 12/24/23 11:00> Date of Service: 12/24/23 <Shane Brian - Last Filed: 12/24/23 12:52> Physical Examination - Vital Signs Temperature: 97.4 F Blood Pressure: 148/89 Pulse: 85 Respirations: 18 Pulse Ox (%): 91 - Physical Exam General: Oriented x1, Other (appears edematous) HEENT: Atraumatic, Normocephalic, Other (periorbital edema) Neck: Supple, JVD distended Respiratory: Normal air movement Cardiovascular: Regular rate/rhythm Capillary refill: <2 Seconds Gastrointestinal: Soft and benign Musculoskeletal: No clubbing Integumentary: No rashes Neurological: Abnormal tone, Abnormal affect Lymphatics: No axilla or inguinal lymphadenopathy External genitalia: Deferred Rectal: Deferred <NevarezZaydanatalee Campuzano - Last Filed: 12/24/23 11:00> Assessment And Plan - Plan Assessment And Plan NSTEMI: Troponin is 5543 <- 5026. Cardiology did cardiac cath today. Will continue brilinta and aspirin for at least [address] Johnson post PCI 12/23/23 "Assessment And Plan: 1. Significant distal left main into left circumflex disease. PCI done with Sy nergy 3.0 x 24 mm drugeluting stent. 2. Significant mid RCA disease. Staged PCI needs to be done. 3. Significant [place] CAD with only patent COBB to LAD with occluded rest of the grafts. Plan will be: 1. Aspirin 325 x1 was given in the lab rn. Continue aspirin 81 mg daily. 2. Brilinta 180 x1 was given in the lab rn. Continue Brilinta 90 mg p.o. b.i.d. 3. Continue aggressive medical treatment for CAD. 4. Staged PCI of the RCA to be done in 4 to 6 weeks." CAD status post CABG: Will continue home meds Follicular thyroid cancer status post partial resection: Will check TSH level. (pending) Hypertension: Will continue metoprolol Hx of CHF: Continue metoprolol, entresto Hyperlipidemia: Continue statin Anemia of chronic disease: hgb 12.7. Will monitor H/H. No overt bleeding at this time A. fibrillation paroxysmal: Will continue telemetry History of BPH: Continue flomax edema/mild hyperkalemia hold Spironolactone, lasix 20mg iv x 1. Albuterol neb x 1. (calcium 9.9). GI ppx: protonix DVT ppx: SCD Code: full code <NevarezMichelle Justen - Last Filed: 12/24/23 11:00> - Plan Pt seen and examined. I agree with the note by the CARE MANAGEMENT SPECIALIST. Cardiology has cleared pt for discharge. He will need to take DAPT for at least 1 year. <Shane Brian - Last Filed: 12/24/23 12:52>
--- NOTE | 2023-12-24 11:32 | P.PN ---
Subjective Date of Service: 12/24/23 Chief Complaint: Chest pain Subjective: No new changes, No C/O voiced, Tolerating diet, Ambulating, Improving Review of Systems 10-point ROS is otherwise unremarkable Physical Examination - Vital Signs Temperature: 97.4 F Blood Pressure: 148/89 Pulse: 85 Respirations: 18 Pulse Ox (%): 91 - Physical Exam General: Alert, In no apparent distress HEENT: Atraumatic, PERRLA, EOMI Neck: Supple, JVD not distended Respiratory: Clear to auscultation bilaterally, Normal air movement Cardiovascular: Regular rate/rhythm, Normal S1 S2 Gastrointestinal: Normal bowel sounds, No tenderness Musculoskeletal: No tenderness Integumentary: No rashes Neurological: Normal speech, Normal tone, Normal affect Lymphatics: No axilla or inguinal lymphadenopathy - Studies Medications List Reviewed: Yes Assessment And Plan - Current Problems (Diagnosis) (1) HTN (hypertension) Current Visit: Yes Status: Acute Plan: Metoprolol 50 mg po BID resume patient home dose Spirnolactone and Entresto in am. (2) Congestive heart failure Current Visit: Yes Status: Acute Plan: Metoprolol 50 mg po BID Resume home dose of spirnolactone and Entresto in am (3) NSTEMI (non-ST elevated myocardial infarction) Current Visit: Yes Status: Acute Plan: Patient is s/p coronary angiogram with patent COBB-LAD and occluded vein grafts, s/p PCI of LM into LCX with Synergy 3.0x24 mm DERIK, will need staged PCI of RCA in 4-6 weeks. ASA 81 mg daily for life. Brilinta 90 mg po BID for 12 months Lipitor 40 mg daily
[2023-12-24] MEDS: ALBUTEROL 2.5 MG/3 ML NEB SOL NEB ONE (11:44)
[2023-12-24] MEDS: FUROSEMIDE 20 MG/ 2ML VIAL IV ONE (12:22)
--- NOTE | 2023-12-24 13:19 | EKG ---
Test Date: 2023-12-23 Test Time: 19:16:49 Roll Inspector: GLADIS MEASUREMENT RESULTS: Intervals: Rate: 78 [place]: 170 QRSD: 102 QT: 438 QTc: 499 [place]: P: 61 [place]: 170 QRS: 103 T: 206 INTERPRETIVE STATEMENTS: Normal sinus rhythm Possible Left atrial enlargement Rightward axis Anterior infarct, age undetermined ST & T wave abnormality, consider lateral ischemia Abnormal ECG Compared to ECG 12/22/2023 17:16:01 Right-axis deviation now present Atrial premature complex(es) no longer present Right ventricular hypertrophy no longer present Myocardial infarct finding still present ST (T wave) deviation still present Possible ischemia still present Electronically Signed On 12-24-23 13:17:56 CDT by Lonnie Garcia
--- NOTE | 2023-12-24 13:39 | P.DS ---
Admission Date: 12/22/23 Discharge Date: 12/24/23 Disposition: ROUTINE DISCHARGE Discharge Condition: GOOD Reason for Admission: Chest pain Brief History of Present Illness: 73-year-old male with past medical history of CAD status post CABG, follicular thyroid cancer status post partial resection, hypertension hyperlipidemia, atrial fibrillation paroxysmal, history of BPH, nodules in the lung brought to ER with chest pain. Pain is located retrosternally not radiation intermittent, was 6 out of 10 in severity. Pressure-like feeling. At the time of interview patient does not have any chest pain. No fever or chills. No nausea vomiting or diarrhea. Patient was assessed in the ER and was found to have NSTEMI and was admitted for further management. 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 The chest pain was located retrosternally, non- radiating and pressure like in nature with severity of 6/10. Lab studies showed elevated troponin. Pt was admitted for NSTEMI. Cardiology did cardiac cath and placed stent to the LCX. Pt will need staged PCI of RCA in 4-6 weeks. We advised pt to take aspirin and brilinta for at least 1 year. Also continue atorvastatin. We continued home meds for other chronic medical problems. Pt was in NAD prior to discharge. Vital Signs/Physical Exam: Temp Pulse Resp BP Pulse Ox 97.8 F 78 17 138/88 97 12/24/23 12:00 12/24/23 12:22 12/24/23 12:00 12/24/23 12:22 12/24/23 12:00 Laboratory Data at Discharge: WBC 4.60 thou/uL (4.3-10.9) 12/23/23 05:53 Hgb 12.7 g/dL (13.6-17.9) L 12/23/23 05:53 Hct 39.1 % (39.6-49.0) L 12/23/23 05:53 Plt Count 203 thou/uL (152-406) 12/24/23 09:25 PT 15.9 SECONDS (9.5-12.5) H 12/22/23 17:36 INR 1.46 06/02/24 17:36 APTT 49.7 SECONDS (24.3-36.9) H 12/23/23 05:53 Sodium 138 mEq/L (136-145) 12/24/23 09:25 Potassium 5.2 mEq/L (3.5-5.1) H D 12/24/23 09:25 BUN 25 mg/dL (7-18) H 12/24/23 09:25 Creatinine 1.29 mg/dL (0.70-1.30) 12/24/23 09:25 Glucose 158 mg/dL (74-106) H 12/24/23 09:25 Phosphorus 4.0 mg/dL (2.5-4.9) 12/24/23 09:25 Magnesium 2.2 mg/dL (1.6-2.4) 12/24/23 09:25 Total Bilirubin 0.7 mg/dL (0.2-1.0) 12/23/23 05:53 AST 51 U/L (15-37) H 12/23/23 05:53 ALT 41 U/L (16-61) 12/23/23 05:53 Alkaline Phosphatase 213 U/L (45-117) H 12/23/23 05:53 Home Medications: Levothyroxine Sodium 137 mcg PO DAILY 12/22/23 Metformin HCl 1,000 mg PO BID 12/22/23 Sacubitril/Valsartan [Entresto 97 mg-103 mg Tablet] 1 tab PO DAILY 12/22/23 Spironolactone [Aldactone*] 25 mg PO DAILY 12/22/23 Aspirin Chewable [Aspirin Chewable*] 81 mg PO DAILY 90 Days #90 tab.chew 12/24/23 Atorvastatin Calcium 40 mg PO BEDTIME 90 Days #90 tab 12/24/23 Metoprolol Tartrate [Lopressor*] 50 mg PO BID 30 Days #60 tab 12/24/23 Ticagrelor [Brilinta] 90 mg PO BID 90 Days #180 tab 12/24/23 New Medications: Aspirin Chewable [Aspirin Chewable*] 81 mg PO DAILY 90 Days #90 tab.chew Atorvastatin Calcium 40 mg PO BEDTIME 90 Days #90 tab Ticagrelor [Brilinta] 90 mg PO BID 90 Days #180 tab Metoprolol Tartrate [Lopressor*] 50 mg PO BID 30 Days #60 tab Physician Discharge Instructions: Continue ad deena activity as tolerated. Take Brilinta and aspirin for at least 1 years. Continue atorvastatin and other home meds. Follow up with PCP and cardiology within 1 - 2 weeks. Diet: AHA Activity: Ad deena Followup: Rafa Britton MD [Primary Care Provider] -
[2023-12-24 23:35] VITALS: O2SAT 96
[2023-12-25] MEDS: LEVOTHYROXINE SOD 0.025 MG TAB PO SCH (06:06)
[2023-12-25] MEDS: LEVOTHYROXINE SOD 0.112 MG TAB PO SCH (06:07)
[2023-12-25 10:20] VITALS: BP 115/95; TEMP 97.3
--- NOTE | 2023-12-25 13:23 | P.DS ---
Admission Date: 12/22/23 Discharge Date: 12/25/23 Disposition: ROUTINE DISCHARGE Discharge Condition: GOOD Reason for Admission: Chest pain Brief History of Present Illness: 73-year-old male with past medical history of CAD status post CABG, follicular thyroid cancer status post partial resection, hypertension hyperlipidemia, atrial fibrillation paroxysmal, history of BPH, nodules in the lung brought to ER with chest pain. Pain is located retrosternally not radiation intermittent, was 6 out of 10 in severity. Pressure-like feeling. At the time of interview patient does not have any chest pain. No fever or chills. No nausea vomiting or diarrhea. Patient was assessed in the ER and was found to have NSTEMI and was admitted for further management. 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 The chest pain was located retrosternally, non- radiating and pressure like in nature with severity of 6/10. Lab studies showed elevated troponin. Pt was admitted for NSTEMI. Cardiology did cardiac cath and placed stent to the LCX. Pt will need staged PCI of RCA in 4-6 weeks. We advised pt to take aspirin and brilinta for at least 1 year. Also continue atorvastatin. We continued home meds for other chronic medical problems. We held his discharge because pt was very somnolent after due to morphine. We observed him overnight and he returned to his baseline before discharge. Pt ambulated without assistance. He was in NAD prior to discharge. Vital Signs/Physical Exam: Temp Pulse Resp BP Pulse Ox 97.3 F 68 17 115/95 H 100 12/25/23 08:00 12/25/23 08:00 12/25/23 08:00 12/25/23 08:00 12/25/23 08:00 Laboratory Data at Discharge: WBC Cancelled 12/25/23 05:00 Hgb Cancelled 12/25/23 05:00 Hct Cancelled 12/25/23 05:00 Plt Count Cancelled 12/25/23 05:00 PT 15.9 SECONDS (9.5-12.5) H 12/22/23 17:36 INR 1.46 12/22/23 17:36 APTT 49.7 SECONDS (24.3-36.9) H 12/23/23 05:53 Sodium Cancelled 12/25/23 05:00 Potassium Cancelled 12/25/23 05:00 BUN Cancelled 12/25/23 05:00 Creatinine Cancelled 12/25/23 05:00 Glucose Cancelled 12/25/23 05:00 Phosphorus 4.0 mg/dL (2.5-4.9) 12/24/23 09:25 Magnesium 2.2 mg/dL (1.6-2.4) 12/24/23 09:25 Total Bilirubin Cancelled 12/25/23 05:00 AST Cancelled 12/25/23 05:00 ALT Cancelled 12/25/23 05:00 Alkaline Phosphatase Cancelled 12/25/23 05:00 Home Medications: Levothyroxine Sodium 137 mcg PO DAILY 12/22/23 Metformin HCl 1,000 mg PO BID 12/22/23 Sacubitril/Valsartan [Entresto 97 mg-103 mg Tablet] 1 tab PO DAILY 12/22/23 Spironolactone [Aldactone*] 25 mg PO DAILY 12/22/23 Aspirin Chewable [Aspirin Chewable*] 81 mg PO DAILY 90 Days #90 tab.chew 12/24/23 Atorvastatin Calcium 40 mg PO BEDTIME 90 Days #90 tab 12/24/23 Metoprolol Tartrate [Lopressor*] 50 mg PO BID 30 Days #60 tab 12/24/23 Ticagrelor [Brilinta] 90 mg PO BID 90 Days #180 tab 12/24/23 New Medications: Aspirin Chewable [Aspirin Chewable*] 81 mg PO DAILY 90 Days #90 tab.chew Atorvastatin Calcium 40 mg PO BEDTIME 90 Days #90 tab Ticagrelor [Brilinta] 90 mg PO BID 90 Days #180 tab Metoprolol Tartrate [Lopressor*] 50 mg PO BID 30 Days #60 tab Physician Discharge Instructions: Continue ad deena activity as tolerated. Take Brilinta for at least 1 year. Take daily low dose aspirin for life. Continue atorvastatin and other home meds. Follow up with PCP and cardiology within 1 - 2 weeks. You will need another stent placement in 4 - 6 weeks. Diet: AHA Activity: Ad deena Followup: Efren Johnson MD [ACTIVE - CAN ADMIT] - Rafa Britton MD [Primary Care Provider] -
== END 2023-12-25 12:47 | disposition home or self-care (01) | DRG 321 ==
LOC: ER 16:42 → ERHOLD 19:57 → 3RD-ICU 21:25 → 2ND 12-24 01:07
PROVIDERS: ADMIT Family Medicine; ATTEND Hospitalist
PROC: 027034Z Dilation of Coronary Artery, One Artery with Drug-eluting Intraluminal Device, Percutaneous Approach (ICD-10-PCS; principal; 2023-12-23)
PROC: 4A023N7 Measurement of Cardiac Sampling and Pressure, Left Heart, Percutaneous Approach (ICD-10-PCS; 2023-12-23)
PROC: B2131ZZ Fluoroscopy of Multiple Coronary Artery Bypass Grafts using Low Osmolar Contrast (ICD-10-PCS; 2023-12-23)
PROC: B2111ZZ Fluoroscopy of Multiple Coronary Arteries using Low Osmolar Contrast (ICD-10-PCS; 2023-12-23)
DX: I21.4 Non-ST elevation (NSTEMI) myocardial infarction (principal); I50.31 Acute diastolic (congestive) heart failure; I11.0 Hypertensive heart disease with heart failure; E11.9 Type 2 diabetes mellitus without complications; E78.5 Hyperlipidemia, unspecified; E87.5 Hyperkalemia; N40.0 Benign prostatic hyperplasia without lower urinary tract symptoms; D63.8 Anemia in other chronic diseases classified elsewhere; I48.0 Paroxysmal atrial fibrillation; I25.10 Atherosclerotic heart disease of native coronary artery without angina pectoris; Z95.1 Presence of aortocoronary bypass graft; Z95.0 Presence of cardiac pacemaker; Z79.02 Long term (current) use of antithrombotics/antiplatelets; Z79.84 Long term (current) use of oral hypoglycemic drugs; Z79.890 Hormone replacement therapy; Z85.850 Personal history of malignant neoplasm of thyroid; Z79.899 Other long term (current) drug therapy
CPT/HCPCS: 36415; 70450; 71045; 76937; 80048; 80053; 80076; 81001; 82947; 83735; 83880; 84100; 84443; 84484; 85025; 85049; 85347; 85610; 85730; 93005; 93459; 94640; 94760; 96365; 96375; 97116; 97161; 97530; 99152; 99153; 99285; C1725; C1893; C9600; J0461; J1644; J1940; J2001; J2250; J3010; J3486; J7040; J7613; Q9967